=== PATIENT | male | born 1965 | race Caucasian/White ===

== ENCOUNTER → 2019-10-23 17:08 | Outpatient (CLI) | payer OTHER, SELFPAY ==
--- NOTE | ~2019-10-23 | XR_ITS ---
EXAMINATION: XR knee LT 3V DATE: 10/23/2019 17:23 INDICATION: Anterior and lateral left knee pain TECHNIQUE: Anteroposterior, 2 oblique and crosstable lateral views of the left knee were obtained COMPARISON: None. FINDINGS: Alignment is normal. No fracture. Joint spaces appear normal however evaluation for joint space narr owing is limited on nonweightbearing imaging. No joint effusion/layering lipohemarthrosis. Small enth esophytes along the anterior patella and distal quadriceps tendon. Soft tissues are unremarkable. IMPRESSION: 1. No left knee joint effusion or acute osseous abnormality. Reviewed, dictated and finalized at location A. TION ELECTRONICS TECHNICIAN
== END ==
PROVIDERS: PCP Family Medicine; Visit Provider Family Medicine
DX: G89.29 Other chronic pain (principal); M25.562 Pain in left knee
CPT/HCPCS: 73562

== ENCOUNTER → 2021-03-15 00:34 | Outpatient (CLI) | payer OTHER, SELFPAY ==
[2021-03-15 21:52] LABS: SARS-CoV-2 RNA PCR Negative
== END ==
PROVIDERS: PCP Family Medicine; Visit Provider Internal Medicine Critical Care Medicine
DX: R68.89 Other general symptoms and signs (principal); Z20.822 Contact with and (suspected) exposure to COVID-19
CPT/HCPCS: C9803; U0003; U0005

== ENCOUNTER 2021-03-18 16:00 | Outpatient (CLI) | payer OTHER, SELFPAY ==
--- NOTE | 2021-04-05 10:04 | WPDSLEEPSTUD ---
Sleep Study Date of Study: 03/18/21 Ordering Provider: Armando Zaragoza MD Interpreting Physician: Tory Sheriff MD Sleep Study Type: CPAP Titration Height: 1.85 m Weight: 120.202 kg Body Mass Index: 34.9 Neck Circumference (inches): 19.5 Garner: 9 Reason for Sleep Study obstructive sleep apnea on CPAP, needs a retitration * 01/08/2013- CPAP titration - Optimal pressure 8 cm body mass index 33.2. * 09/18/2012 - Basic sleep study showing obstructive sleep apnea; this was at an outside facility Sleep History Andrés ricardo is a 55-year-old male who has obstructive sleep apnea and is currently is CPAP. He does not feel rested when he wakes the morning. He does not awaken from sleep feeling short of breath. He occasionally awakens at night with heartburn, belching or coughing. He rarely snores. He does not snore loudly enough that others complain about it. He occasionally has trouble sleeping the cold. He rarely wakes up gasping for breath at night. He rarely has breathing problems at night observed by others. He occasionally sweats excessively at night. He rarely notices his heart pounding or beating irregularly night. He occasionally falls asleep during the day. He does not fall asleep involuntarily and he does not fall asleep while driving. He rarely has loss of muscle tone with strong emotion. He occasionally has daytime difficulties due to excessive sleepiness. He does not feel paralyzed on waking or falling asleep. He does not have vivid dreamlike scenes upon awakening or falling asleep. He does not feel afraid to go to sleep. He rarely has nightmares. He rarely remembers his dreams. He occasionally has racing thoughts. He occasionally feels sad or depressed. He occasionally has anxiety. He occasionally has muscular tension. He rarely notices parts of his body jerking. He does not kick at night. He occasionally has crawling and aching feelings in his legs. He occasionally has leg pain during the night. He does not have morning jaw pain. He rarely grinds his teeth during sleep. He occasionally has bothered by pain during the day. He occasionally has awakened by pain at night. He frequently wakes up feeling stiff in the morning with sore achy muscles and pain in the neck and spine. He has fatigue and occasionally depression. Normal bedtime 10:00 p.m. falling asleep quickly waking sometimes not at all but sometimes once at night for short amount of time to use the bathroom. He then repositioned and goes back to sleep. On the weekends he may stay awake as late as 10:30 or 11:00 p.m. He takes naps in the afternoon or evening. Sometimes he feels refreshed after a short nap of 10 or 15 minutes. He is usually drowsy in the morning for 3 hours or longer. He feels better in the afternoon compared other times of day Habits: Never smoked tobacco. Caffeine 4 beverages a day. Alcohol is used socially, infrequently. Recreational: marijuana. [facility] Past Medical History Medical History Abdominal pain Acute bronchitis Acute non-recurrent maxillary sinusitis Anxiety BMI 36.0-36.9,adult Chronic anxiety Chronic depression Chronic pain of left knee Depression Encounter for prostate cancer screening Encounter for wellness examination in adult Essential (primary) hypertension Fatigue Folliculitis Ganglion cyst Hypersomnia with sleep apnea Hypertension Hypothyroidism, unspecified Lateral epicondylitis of left elbow Mixed hyperlipidemia LUISITO on CPAP Polyp of colon Thyroid disorder Family History Family History Other Depression Social History Social History Smoking status: Never smoker Alcohol intake: current Substance use: current Substance use type: marijuana Medications Home Medications Medication Instructions Recorded Confirme
[2021-04-05 10:30] VITALS: BMI 34.9
== END 2021-03-19 07:16 | disposition home or self-care (01) ==
LOC: ANHCSM 03-22 10:11
PROVIDERS: PCP Family Medicine; Visit Provider Family Medicine
DX: G47.33 Obstructive sleep apnea (adult) (pediatric) (principal); G25.81 Restless legs syndrome
CPT/HCPCS: 95811

== ENCOUNTER → 2021-08-03 16:15 | Outpatient (CLI) | payer OTHER, SELFPAY ==
--- NOTE | ~2021-08-03 | XR_ITS ---
XR lumbar spine min 4V 08/03/2021 16:28 Indication: Low back pain Procedure: 5 views lumbar spine Comparison: 06/25/2013 Findings: There is mild disc narrowing at all lumbar levels. There is mild lower lumbar facet hypertr ophy. No fracture, subluxation or dislocation. No evidence for spondylolisthesis. Sacral foramen are symmetric. Impression: 1: Progression of mild lumbar spondylosis. Reviewed, dictated and finalized at location A. Impression: 1: Progression of mild lumbar spondylosis.
== END ==
PROVIDERS: PCP Family Medicine; Visit Provider Family Medicine
DX: M54.40 Lumbago with sciatica, unspecified side (principal); M47.896 Other spondylosis, lumbar region
CPT/HCPCS: 72110

== ENCOUNTER 2021-09-06 12:01 | Outpatient (CLI) | payer OTHER, SELFPAY ==
[2021-09-06 12:27] LABS: Basophils Absolute Auto 0.1 K/mm3 (0.0-0.1); Basophils Percent Auto 0.6 % (0.2-1.2); Eosinophils Absolute Auto 0.2 K/mm3 (0-0.3); Eosinophils Percent Auto 1.7 % (0-4.4); Hemoglobin 15.7 g/dL (14.0-18.0); Immature Granulocyte Absolute 0.03 K/mm3 (0.00-0.031); Immature Granulocyte Percent A 0.2 % (0-0.5); Lymphocytes Absolute Auto 3.91 K/mm3 (0.9-3.2); Lymphocytes Percent Auto 31.7 % (18.3-44.2); Mean Corpuscular HGB Conc 34.9 g/dl (32-36); Mean Corpuscular Hemoglobin 29.9 pg (26-34); Mean Corpuscular Volume 85.7 fl (80-100); Mean Platelet Volume 9.6 fl (7.4-10.4); Monocytes Percent Auto 8.4 % (2.6-8.5); Neutrophils Absolute Auto 7.1 K/mm3 (1.3-6.7); Neutrophils Percent Auto 57.4 % (45.5-73.1); Platelet Count Result 250 k/mm3 (150-375); Red Blood Count 5.25 M/mm3 (4.6-6.20); Red Cell Distribution Width 12.2 % (11.5-14.5); White Blood Count 12.3 K/mm3 (4.5-10.0)
[2021-09-06 12:42] LABS: Alanine Aminotransferase 32 U/L (4-50); Albumin Level 4.8 g/dL (3.5-5.1); Alkaline Phosphatase 62 U/L (38-126); Anion Gap 10 mmol/L (8-16); Aspartate Amino Transferase 31 U/L (17-59); Bilirubin,Total 0.9 mg/dL (0.2-1.3); Blood Urea Nitrogen 20 mg/dL (9-20); Calcium 9.7 mg/dL (8.4-10.2); Carbon Dioxide 29 mmol/L (22-30); Chloride 99 mmol/L (98-107); Cholesterol 193 mg/dL (0-200); Estimated Glomerular Filt Rate 52; Glucose 93 mg/dL (65-110); HDL Direct 44 mg/dL; Sodium 138 mmol/L (137-145); Triglycerides 228 mg/dL (<150)
--- NOTE | 2021-09-06 12:45 | ECG_ITS ---
Measurements Intervals [place] Rate: 50 P: 59 AK: 192 QRS: 44 QRSD: 112 T: 31 QT: 460 QTc: 423 Interpretive Statements SINUS BRADYCARDIA INTRAVENTRICULAR CONDUCTION DELAY DELAYED PRECORDIAL R/S TRANSITION BASELINE ARTIFACT- II, III, AVF BORDERLINE ECG Electronically Signed On 09-06-2021 13:26:20 BLOW MOLD OPERATOR by Naseem Boyd D.O.
[2021-09-06 12:53] LABS: LDL Cholesterol Direct 93 mg/dL
[2021-09-06 12:56] LABS: Free T4 Free Thyroxine 1.11 ng/mL (0.78-2.19)
== END 2021-09-06 12:02 | disposition home or self-care (01) ==
PROVIDERS: PCP Family Medicine; Visit Provider Nurse Practitioner Family
DX: E03.9 Hypothyroidism, unspecified (principal); E78.2 Mixed hyperlipidemia; I10 Essential (primary) hypertension
CPT/HCPCS: 36415; 80053; 80061; 84439; 84443; 85025; 93005

== ENCOUNTER 2021-09-07 13:40 | Observation (INO) | payer OTHER, SELFPAY ==
[2021-09-07] VITALS (20 sets, daily range): BP systolic 142–186; BP diastolic 88–117; PULSE 49–61; RESP 15–24; TEMP 36.4; O2SAT 96–100
--- NOTE | ~2021-09-07 | XR_ITS ---
EXAMINATION: XR chest 2V DATE: 09/07/2021 14:35 INDICATION: Left-sided chest pain. Hypertension. TECHNIQUE: PA and lateral views of the chest were obtained. COMPARISON: None FINDINGS: Minimal streaky atelectasis at the base of the lingula. A couple small calcified nodules at the left lower lung zone consistent with old granulomatous disease. No other airspace opacities, pulmonary chela ma, pleural effusion or pneumothorax. The cardiomediastinal silhouette is normal. Mild thoracic spond ylosis. IMPRESSION: 1. Minimal lingular atelectasis/scarring. No other acute cardiopulmonary disease. Reviewed, dictated and finalized at location A. N INSTALLER IMPRESSION: 1. Minimal lingular atelectasis/scarring. No other acute cardiopulmonary diseas e.
--- NOTE | 2021-09-07 13:44 | ECG_ITS ---
Measurements Intervals [place] Rate: 50 P: 40 LA: 198 QRS: 14 QRSD: 108 T: 57 QT: 431 QTc: 396 Interpretive Statements SINUS BRADYCARDIA INCOMPLETE RIGHT BUNDLE BRANCH BLOCK BORDERLINE R WAVE PROGRESSION, ANTERIOR LEADS BASELINE ARTIFACT- I, II, III, AVR, AVL, AVF BORDERLINE ECG Electronically Signed On 09-07-2021 17:53:16 ROD BENDING MACHINE OPERATOR by Naseem Boyd D.O.
[2021-09-07 14:49] LABS: Basophils Absolute Auto 0.1 K/mm3 (0.0-0.1); Basophils Percent Auto 0.6 % (0.2-1.2); Eosinophils Absolute Auto 0.2 K/mm3 (0-0.3); Eosinophils Percent Auto 1.8 % (0-4.4); Hematocrit 43.8 % (42.0-52.0); Immature Granulocyte Absolute 0.02 K/mm3 (0.00-0.031); Immature Granulocyte Percent A 0.2 % (0-0.5); Lymphocytes Absolute Auto 2.93 K/mm3 (0.9-3.2); Lymphocytes Percent Auto 26.6 % (18.3-44.2); Mean Corpuscular HGB Conc 34.2 g/dl (32-36); Mean Corpuscular Volume 87.6 fl (80-100); Mean Platelet Volume 9.4 fl (7.4-10.4); Monocytes Absolute Auto 0.7 K/mm3 (0.1-0.6); Monocytes Percent Auto 6.5 % (2.6-8.5); Neutrophils Absolute Auto 7.1 K/mm3 (1.3-6.7); Neutrophils Percent Auto 64.3 % (45.5-73.1); Platelet Count Result 213 k/mm3 (150-375); Red Cell Distribution Width 12.6 % (11.5-14.5)
[2021-09-07 15:00] LABS: Alanine Aminotransferase 31 U/L (4-50); Albumin Level 4.7 g/dL (3.5-5.1); Alkaline Phosphatase 59 U/L (38-126); Anion Gap 8 mmol/L (8-16); Aspartate Amino Transferase 31 U/L (17-59); Bilirubin,Total 0.7 mg/dL (0.2-1.3); Blood Urea Nitrogen 20 mg/dL (9-20); Calcium 9.5 mg/dL (8.4-10.2); Carbon Dioxide 29 mmol/L (22-30); Chloride 101 mmol/L (98-107); Estimated CRCL calculation 68 ml/min; Estimated Glomerular Filt Rate 48; Glucose 121 mg/dL (65-110); Lipase 97 U/L (23-300); Potassium 4.2 mmol/L (3.4-5.0); Sodium 138 mmol/L (137-145)
[2021-09-07 15:02] LABS: INR 0.9; Prothrombin Time 12.1 Seconds (11.1-14.7)
[2021-09-07 15:03] LABS: Partial Thromboplastin Time 26.4 SECONDS (22.3-36.8)
[2021-09-07 15:11] LABS: Troponin I < 0.012 ng/mL (0.000-0.034)
[2021-09-07 17:44] LABS: Troponin I < 0.012 ng/mL (0.000-0.034)
--- NOTE | 2021-09-07 20:10 | ED.CHESTPAIN ---
HPI - Chest Pain General Chief Complaint: Chest Pain Stated Complaint: ELEVATED BP,CHEST TIGHT FLUSHED Time Seen by Provider: 09/07/21 20:12 Source: patient Mode of arrival: ambulatory Limitations: no limitations History of Present Illness HPI narrative: Patient is a 56-year-old male complaining of chest pain, midsternal, tightness, 7 out of 10, nonradiating accompanied by elevated blood pressure started today. Patient denies any shortness of breath, abdominal pain, nausea, vomiting, diaphoresis, fever or chills. Related Data Allergies Allergy/AdvReac Type Severity Reaction Status Date / Time Mushroom Allergy Severe HIVES Uncoded 07/18/19 14:49 Review of Systems Review of Systems: All systems reviewed & are unremarkable except as noted in HPI and below Constitutional: Constitutional: Denies body ache(s), Denies chills, Denies excessive sweating, Denies fatigue, Denies fever(s), Denies headache(s), Denies lethargy, Denies malaise, Denies weakness and Denies weight loss Eyes: Eyes: Denies blurry vision, Denies change in vision and Denies loss of vision ENT: Denies dizziness, Denies ear discharge, Denies headache(s), Denies lip swelling, Denies epistaxis, Denies nasal congestion, Denies neck pain, Denies throat swelling and Denies tongue swelling Cardiovascular: Cardiovascular: Reports chest pain, Reports chest pain at rest, Reports chest pain with activity, Denies diaphoresis, Denies rapid heart rate, Denies edema, Denies irregular heart rhythm, Denies lightheadedness, Denies palpitations, Denies dyspnea and Denies dyspnea on exertion Respiratory: Respiratory: Denies chest congestion, Denies cough, Denies hemoptysis, Denies dyspnea and Denies dyspnea on exertion Gastrointestinal: Gastrointestinal: Denies abdominal pain, Denies melena, Denies hematochezia, Denies diarrhea, Denies nausea, Denies vomiting and Denies hematemesis Musculoskeletal: Musculoskeletal: Denies abnormal gait, Denies deformity, Denies joint swelling, Denies limited range of motion, Denies neck pain and Denies numbness Neurologic: Denies Abnormal speech present, Denies abnormal gait, Denies confusion, Denies dizziness, Denies headache(s), Denies focal weakness, Denies loss of vision, Denies numbness, Denies Other visual disturbances, Denies Sensory deficit (Neuro) and Denies weakness Psychiatric: Psychiatric: Denies confusion, Denies depression, Denies auditory hallucinations, Denies homicidal ideation and Denies suicidal ideation Endocrine: Endocrine: Denies cold intolerance, Denies excessive sweating, Denies fatigue, Denies heat intolerance and Denies palpitations Hematologic/Lymphatic: Hematologic/Lymphatic: Denies easy bleeding and Denies easy bruising Allergic/Immunologic: Allergic/Immunologic: Denies lip swelling, Denies throat swelling and Denies tongue swelling PMFSH Past Medical History Medical History Abdominal pain Acute bronchitis Acute non-recurrent maxillary sinusitis Anxiety BMI 35.0-35.9,adult BMI 36.0-36.9,adult Chronic anxiety Chronic depression Chronic left-sided low back pain with sciatica 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 previous CPAP titration on 01/09/2013 with 8 cm water pressure with large nasal mask. Plantar wart of left foot (~08/03/21) Polyp of colon Seasonal allergic rhinitis Thyroid disorder Family Hi
[2021-09-07] MEDS: ASPIRIN 81 MG CHEWABLE TABLET 324 MG PO (20:34)
[2021-09-07 21:11] LABS: Troponin I < 0.012 ng/mL (0.000-0.034)
[2021-09-07] MEDS: NITROGLYCERIN OINTMENT 1 INCH DOSE TRANSDERM (22:07)
--- NOTE | 2021-09-07 22:09 | PC.NURSE ---
dr oneill informed of current bp 156/91 request to hold hydralazine and give ntg paste 1 inch
[2021-09-08 03:25] VITALS: BP 124/79; PULSE 64; RESP 18; O2SAT 95
--- NOTE | 2021-09-08 04:43 | PM.IMHP ---
H&P: HPI History of Present Illness Date/Time: 09/08/21 04:43 Chief Complaint: High blood pressure chest pain Narrative: this is a 56-year-old male who presents to the ED with elevated blood pressure readings. He states he has been having issues blood pressure recently and has been recently started on metoprolol by his primary care physician. His recent lab work also noted elevated TSH for which his doses of levothyroxine was adjusted. He states that he was feeling flushed and was noted to have elevated blood pressure and hence he called his primary care physician. Who advised him to go to the ER for evaluation. Patient reports that she he was having some chest discomfort in his left upper part of the chest which he has not noticed in the past. Denies any diaphoresis fever chills nausea vomiting abdominal pain or shortness of breath. In the ED was evaluated with EKG which shows sinus bradycardia without any acute ST-T changes. Troponin was negative . He is admitted for further evaluation and management Review of Systems Review of Systems: - CONSTITUTIONAL: Denies weight loss, fever and chills. - HEENT: Denies changes in vision and hearing - RESPIRATORY: Denies SOB and cough. - CV: Denies palpitations and reports CP. - GI: Denies abdominal pain, nausea, vomiting and diarrhea. - : Denies dysuria and urinary frequency. - MSK: Denies myalgia and joint pain. - SKIN: Denies rash and pruritus. - NEUROLOGICAL: Denies headache and syncope. - PSYCHIATRIC: Denies recent changes in mood. Denies anxiety and depression. All systems reviewed & are unremarkable except as noted in HPI and below PMFSH Past Medical History Medical History Abdominal pain Acute bronchitis Acute non-recurrent maxillary sinusitis Anxiety BMI 35.0-35.9,adult BMI 36.0-36.9,adult Chronic anxiety Chronic depression Chronic left-sided low back pain with sciatica 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 previous CPAP titration on 01/09/2013 with 8 cm water pressure with large nasal mask. Plantar wart of left foot (~08/03/21) Polyp of colon Seasonal allergic rhinitis Thyroid disorder Family History Family History Other Depression Social History Social History Smoking status: Never smoker Alcohol intake: current Substance use: current Substance use type: marijuana Meds Home Medications and Allergies Home Medications Medication Instructions Recorded Confirmed Type irbesartan 300 1 tablet PO DAILY #90 tablet 11/02/20 09/07/21 Rx mg-hydrochlorothiazide 12.5 mg tablet buspirone 10 mg tablet 5 mg PO DAILY #45 tablet 08/03/21 09/07/21 Rx levothyroxine 175 mcg tablet 175 mcg PO DAILY #90 tablet 08/24/21 09/07/21 Rx simvastatin 80 mg tablet 80 mg PO DAILY #90 tablet 08/24/21 09/07/21 Rx metoprolol succinate 100 mg 100 mg PO DAILY #90 tablet 08/30/21 09/07/21 Rx tablet,extended release 24 hr Allergies Allergy/AdvReac Type Severity Reaction Status Date / Time Mushroom Allergy Severe HIVES Uncoded 09/07/21 23:21 Vital Signs Vital Signs - 24 hr 09/07/21 14:10 09/07/21 17:07 09/07/21 20:06 Temperature 97.5 F L Pulse Rate 57 L 50 L 54 L Respiratory Rate 16 15 Blood Pressure 175/9
[2021-09-08 06:17] VITALS: BP 128/71; PULSE 52; RESP 16; O2SAT 100
[2021-09-08 07:27] VITALS: BP 143/75; PULSE 60; RESP 16; O2SAT 100
--- NOTE | 2021-09-08 08:55 | ADMGEN ---
This patient, Andrés Newman, was admitted to [facility]. Patient/family oriented to hospital policies and general routines including ID bracelet, bed and alarms, visiting hours, pain management, procedures, bathroom and other care routines, personal items, smoking policy, room service/diet, and visiting hours. Information on how to activate the Rapid Response Team has been discussed. Patient/Family are encouraged to report perceived risks to care and to ask questions if they do not understand what they are told or what they should do. PT ARRIVED TO ROOM, PAINFREE. ADMISSION PROCESS DONE WITH PT. DR PATIÑO HERE VISITING PT.
[2021-09-08 09:07] VITALS: BP 139/82; PULSE 53; RESP 16; TEMP 36.4; O2SAT 98
--- NOTE | 2021-09-08 09:28 | PM.CNCAR ---
Assessment and Plan Additional Plan 56-year-old man with longstanding hypertension having episodes recently where his blood pressure is quite high and at that time he has symptoms of flushing and some generalized weakness. There are no exertional symptoms that are suggestive of or a typical of myocardial ischemia. Despite the symptoms that he reported to the hospital with his electrocardiograms are normal and his troponin levels are negative x3 sets. This point I do not believe he needs an evaluation for coronary artery disease. I would recommend that his primary care physician consider workup for renal artery stenosis and possibly for pheochromocytoma as well. He does not have to remain in the hospital obviously for these exams. At this point I do not have any specific cardiac recommendations and he can be discharged from my perspective Jose Angel Tucker MD [facility] History of Present Illness History of Present Illness Consult date/time: 09/08/21 09:28 Consult reason: chest pain Reason For Visit: Chest pain Narrative: This is a 56-year-old man that I am seeing this morning at the request of the hospitalist because of chest pain. The patient is not known to have any cardiac problems prior to this and has been primarily concerned recently about hypertension. He has chronic longstanding essential hypertension and states that recently he has been feeling poorly at times with the sense of being flushed and general weakness would come over him in waves. When he would check his blood pressure at this time it would be considerably elevated at times he was getting blood pressure readings in excess of 200 mmHg. He went to see his primary care physician who added metoprolol to his previous regimen of your breasts are 10/hydrochlorothiazide. He called them again yesterday because he was having waves of hypertension and he states that when he was concerned about this he noticed a mild full sensation on the left side of his chest. He does not really describe this as a pain or a tightness. In his usual state of health this is a gentleman who does not exercise in any structured weight but he does lead an active lifestyle and has not noticed that physical activity such as sustained walking or going on hikes on a vacation will trigger any symptoms of chest pain pressure or heaviness. He denies any sense of shortness of breath orthopnea PND edema palpitations or syncope. In the emergency room his electrocardiogram was done twice and they are normal. He had a series of troponin levels done and they are normal. He is resting in the chest pain center and appears to be quite comfortable his current blood pressure is much better. In this setting I been asked to see him in consultation. Review of Systems Constitutional: Constitutional: Reports no additional constitutional complaints Eyes: Eyes: Reports no additional eye complaints ENT: Reports system reviewed and no additional complaints, except as documented Cardiovascular: Cardiovascular: Reports as per HPI Respiratory: Respiratory: Reports no additional respiratory complaints Gastrointestinal: Gastrointestinal: Reports no additional gastrointestinal complaints Musculoskeletal: Musculoskeletal: Reports no additional musculoskeletal complaints Integumentary/Breasts: Skin/Breast: Reports system reviewed and no additional complaints, except as docu Neurologic: Reports system reviewed and no additional complaints, except as documented Endocrine: Endocrine: Reports no additional endocrine complaints Hematologic/Lymphatic: Hematologic/Lymphatic: Reports no additional hematologic/lymphatic complaints Allergic/Immunologic: Allergic/Immunologic: Reports no additional allergic/immunologic complaints PMFSH Past Medical History Medical History Abdominal pain Acute bronchitis Acute non-recurrent maxillary sinusitis Anxiety BMI 35.0-35.9,adult BMI 36.0-36.9
[2021-09-08 10:32] VITALS: BMI 34.5
[2021-09-08 10:33] VITALS: PULSE 44
--- NOTE | 2021-09-08 10:51 | PM.DS ---
DS: Admitting Diagnosis Discharge Date 09/08/2021 Admitting Diagnosis #Uncontrolled hypertension # chest pain EKG with no acute changes. # LUISITO on CPAP # hypertension resume home medication # hyperlipidemia home medication # chronic anxiety and depression # hypothyroidism # full code status DS: Discharge Diagnosis Discharge Diagnosis (1) Hypertensive urgency: Code(s): I16.0 - Hypertensive urgency Status: Acute (2) Chest pain at rest: Code(s): R07.9 - Chest pain, unspecified Status: Acute (3) Chronic depression: Code(s): F32.9 - Major depressive disorder, single episode, unspecified Status: Acute (4) LUISITO on CPAP: Code(s): G47.33 - Obstructive sleep apnea (adult) (pediatric); Z99.89 - Dependence on other enabling machines and devices Status: Acute (5) Hypothyroidism, unspecified: Qualifiers: Hypothyroidism type: unspecified Qualified Code(s): E03.9 - Hypothyroidism, unspecified Code(s): E03.9 - Hypothyroidism, unspecified Status: Acute (6) Chronic anxiety: Code(s): F41.9 - Anxiety disorder, unspecified Status: Acute (7) Essential (primary) hypertension: Code(s): I10 - Essential (primary) hypertension Status: Acute DS: Summary Hospital Course Reason for hospitalization: Chest pain. Hospital Course: Please refer to admission H&P. Briefly, this is a 56-year-old male who presents to the ED with elevated blood pressure readings. He states he has been having issues blood pressure recently and has been recently started on metoprolol by his primary care physician. His recent lab work also noted elevated TSH for which his doses of levothyroxine was adjusted. He states that he was feeling flushed and was noted to have elevated blood pressure and hence he called his primary care physician. Who advised him to go to the ER for evaluation. Patient reports that she he was having some chest discomfort in his left upper part of the chest which he has not noticed in the past. Denies any diaphoresis fever chills nausea vomiting abdominal pain or shortness of breath. In the ED was evaluated with EKG which shows sinus bradycardia without any acute ST-T changes. Troponin was negative . patient does not have any prior cardiac history. He carries a diagnosis of chronic longstanding hypertension. Most recently the patient has been feeling poorly with the sensation of flushing, generalized weakness. During does episode his blood pressure would be elevated in the 200 mm of Hg range. Patient was seen by his primary care physician who appropriately added metoprolol to his previous regimen of ill base are 10 10 and hydrochlorothiazide. This by this intervention, the patient continues to notice a sensation of fullness of his LEs chest. At baseline the patient leads a pretty active lifestyle. ; he does not exercise but he is physically active; his physical activity does not trigger any chest pain or chest heaviness. Is electrocardiogram was twice benign. Eight 3 set of troponin were within normal range. Patient is stable hemodynamically and quite comfortable. He will be discharged with follow-up for additional outpatient workup for renal artery stenosis and pheochromocytoma, per Cardiology recommendation. Status at Discharge Functional status at discharge: independent ambulation Overall status at discharge: patient is back to baseline Time Spent with Patient Time attestation: Total time spent providing and/or coordinating discharge services: Time spent: Greater than 30 minutes Exam Narrative: GENERAL: The patient is well developed, not in acute distress HEENT: Nonicteric sclerae, PERRLA, EOMI. Oropharynx clear. Moist mucous membranes. Conjunctivae appear well perfused. CHEST: Chest wall is nontender. HEART: Regular rate and rhythm without murmur, rubs, or gallops LUNGS: Clear to auscultation bilaterally. no respiratory distress ABDOMEN: Soft,
--- NOTE | 2021-09-08 12:13 | PC.NURSE ---
DR BENZ HERE SEEING PT. REPORTS THAT SHE WILL DISCHARGE PT WITH OUT PATIENT FOLLOW UP.
--- NOTE | 2021-09-08 13:23 | PC.NURSE ---
DISCHARGE INSTRUCTION REVIEWED WITH PT. VERBALIZED UNDERSTANDING. PT ESCORTED OFF FLOOR.
== END 2021-09-08 13:27 | disposition home or self-care (01) ==
LOC: ANHED 20:44 → ANH2MED 23:32 → ANHCPC 09-08 10:51 → ANH2MED 09-09 11:55 → ANHCPC 09-09 11:55
PROVIDERS: Emergency Medicine; Admitting Provider Internal Medicine; Emergency Provider Emergency Medicine; PCP Family Medicine; Visit Provider Internal Medicine
DX: I16.0 Hypertensive urgency (principal); R07.9 Chest pain, unspecified; G47.33 Obstructive sleep apnea (adult) (pediatric); F32.9 Major depressive disorder, single episode, unspecified; E03.9 Hypothyroidism, unspecified; F41.8 Other specified anxiety disorders; I10 Essential (primary) hypertension; E78.5 Hyperlipidemia, unspecified
CPT/HCPCS: 36415; 71046; 80053; 83690; 84484; 85025; 85610; 85730; 93005; 99285; A9270; G0378

== ENCOUNTER 2021-09-20 15:50 | Outpatient (CLI) | payer OTHER, SELFPAY ==
[2021-09-24 10:33] LABS: Metanephrine, Free <25 pg/mL (<=57); Normetanephrine, Free 73 pg/mL (<=148); Total, Free (MN + NMN) 73 pg/mL (<=205)
== END 2021-09-20 15:51 | disposition home or self-care (01) ==
LOC: ANHLAB 15:52
PROVIDERS: PCP Family Medicine; Visit Provider Internal Medicine
DX: I16.0 Hypertensive urgency (principal)
CPT/HCPCS: 36415; 83835

== ENCOUNTER 2021-09-22 15:32 | Outpatient (CLI) | payer OTHER, SELFPAY ==
--- NOTE | ~2021-09-22 | US_ITS ---
EXAMINATION: US retroperitoneal duplex ltd DATE: 09/22/2021 16:15 COMMODITY DIRECTOR INDICATION: Hypertensive urgency TECHNIQUE: Sonographic imaging of the kidneys was performed with a 3.5 MHz transducer. Retroperitone al duplex sonogram of the renal arteries also obtained. FINDINGS: No focal flow abnormalities are seen in the renal arteries on color Doppler. The peak syst olic velocity ranges of the right and left renal arteries and aorta are 74 cm per second, 87 cm per s econd, and 97 cm per second, respectively. The velocities and renal to aortic ratios are within yunier l limits. IMPRESSION: 1. No Doppler evidence of renal artery stenosis. Reviewed, dictated and finalized at location A. ODITY DIRECTOR
== END 2021-09-22 15:33 | disposition home or self-care (01) ==
LOC: ANHIMG 15:37
PROVIDERS: PCP Family Medicine; Visit Provider Internal Medicine
DX: I16.0 Hypertensive urgency (principal); I70.1 Atherosclerosis of renal artery
CPT/HCPCS: 83835; 93976

== ENCOUNTER 2021-11-06 07:55 | Outpatient (CLI) | payer OTHER, SELFPAY ==
[2021-11-06 08:32] LABS: Add Urine Microscopic? YES; Appearance Urine Clear (Clear); Bilirubin Urine Negative (Negative); Blood Urine Negative (Negative); Color Urine Yellow (Yellow); Glucose Urine UA Negative (Negative); Ketones Urine Negative (Negative); Leukocyte Esterase Ur Negative LEU/UL (NEGATIVE); Mucus Urine Rare /lpf; Nitrate Urine Negative (Negative); Protein Urine Negative (Negative); RBC Urine 0-2 /hpf (0-2); Specific Grav Ur 1.024 (1.001-1.035); Urobilinogen Urine Negative mg/dL (<2.0); WBC Urine 0-3 /hpf (0-3)
[2021-11-06 08:37] LABS: Creatinine Urine 263.1 mg/dL
[2021-11-06 08:43] LABS: Sodium Urine Random 62 meq/L
[2021-11-06 08:43] LABS: Basophils Absolute Auto 0.1 K/mm3 (0.0-0.1); Basophils Percent Auto 0.8 % (0.2-1.2); Eosinophils Absolute Auto 0.2 K/mm3 (0-0.3); Eosinophils Percent Auto 2.8 % (0-4.4); Hematocrit 41.8 % (42.0-52.0); Hemoglobin 14.3 g/dL (14.0-18.0); Immature Granulocyte Absolute 0.02 K/mm3 (0.00-0.031); Immature Granulocyte Percent A 0.3 % (0-0.5); Lymphocytes Absolute Auto 2.42 K/mm3 (0.9-3.2); Lymphocytes Percent Auto 31.9 % (18.3-44.2); Mean Corpuscular HGB Conc 34.2 g/dl (32-36); Mean Corpuscular Hemoglobin 29.4 pg (26-34); Mean Platelet Volume 9.7 fl (7.4-10.4); Monocytes Absolute Auto 0.6 K/mm3 (0.1-0.6); Neutrophils Absolute Auto 4.3 K/mm3 (1.3-6.7); Neutrophils Percent Auto 56.2 % (45.5-73.1); Platelet Count Result 224 k/mm3 (150-375); Red Blood Count 4.86 M/mm3 (4.6-6.20); Red Cell Distribution Width 12.5 % (11.5-14.5); White Blood Count 7.6 K/mm3 (4.5-10.0)
[2021-11-06 08:50] LABS: Eosinophil Urine NONE SEEN % (None Seen)
[2021-11-06 08:59] LABS: Total Protein Urine Random < 5 mg/dL
[2021-11-06 09:00] LABS: Ur Ttl Prot Creatinine Ratio < 0.02 mg/mg (0-0.20)
[2021-11-06 09:25] LABS: Erythrocyte Sedimentation Rate 11 mm/hr (0-20)
[2021-11-06 09:34] LABS: Alanine Aminotransferase 27 U/L (4-50); Albumin Level 4.3 g/dL (3.5-5.1); Alkaline Phosphatase 53 U/L (38-126); Anion Gap 3 mmol/L (8-16); Aspartate Amino Transferase 29 U/L (17-59); Blood Urea Nitrogen 18 mg/dL (9-20); Calcium 9.1 mg/dL (8.4-10.2); Carbon Dioxide 31 mmol/L (22-30); Chloride 106 mmol/L (98-107); Cholesterol 152 mg/dL (0-200); Estimated Glomerular Filt Rate > 60; Glucose 104 mg/dL (65-110); HDL Direct 34 mg/dL; Phosphorus 3.7 mg/dL (2.5-4.5); Potassium 3.8 mmol/L (3.4-5.0); Sodium 140 mmol/L (137-145); Triglycerides 131 mg/dL (<150)
[2021-11-06 09:38] LABS: Iron 107 ug/dL (49-181)
[2021-11-06 09:45] LABS: LDL Cholesterol Direct 77 mg/dL
[2021-11-06 09:49] LABS: Complement C3 111 mg/dL (88-165)
[2021-11-06 10:04] LABS: Free T4 Free Thyroxine 0.98 ng/mL (0.78-2.19); Prostate Specific Antigen 0.7 ng/mL (< OR = 4.0)
[2021-11-06 11:27] LABS: Folic Acid > 20.0 ng/mL (2.76->20)
[2021-11-10 18:29] LABS: Albumin 3.9 g/dL (3.8-4.8); Alpha 1 Globulin 0.3 g/dL (0.2-0.3); Alpha 2 Globulin 0.6 g/dL (0.5-0.9); Beta 1 Globulin 0.5 g/dL (0.4-0.6); Gamma Globulin 1.3 g/dL (0.8-1.7)
[2021-11-10 20:44] LABS: Creatinine, Random Urine 239 mg/dL (20-320); Total Protein/Creatinine Ratio 42 mg/g creat (22-128)
[2021-11-11 10:36] LABS: Anti Glomerular Basement Memb <1.0 AI (<1.0)
[2021-11-11 22:35] LABS: ANCA Screen Negative (Negative)
== END 2021-11-06 07:56 | disposition home or self-care (01) ==
PROVIDERS: PCP Family Medicine; Visit Provider Internal Medicine Nephrology
DX: E03.9 Hypothyroidism, unspecified (principal); E78.2 Mixed hyperlipidemia; G47.33 Obstructive sleep apnea (adult) (pediatric); R53.83 Other fatigue; Z12.5 Encounter for screening for malignant neoplasm of prostate; Z99.89 Dependence on other enabling machines and devices; I12.9 Hypertensive chronic kidney disease with stage 1 through stage 4 chronic kidney disease, or unspecified chronic kidney disease; N18.32 Chronic kidney disease, stage 3b
CPT/HCPCS: 36415; 80053; 80061; 80069; 81001; 82570; 82607; 82728; 82746; 83520; 83540; 84153; 84155; 84156; 84165; 84166; 84300; 84439; 84443; 85025; 85652; 85999; 86036; 86038; 86160; 86225; G0103

== ENCOUNTER 2021-11-23 09:37 | Outpatient (CLI) | payer OTHER, SELFPAY ==
--- NOTE | 2021-11-23 | ECHO_ITS ---
Patient Info Name: Andrés Newman Age: 56 years : 1965 Gender: Male Ht: 73 in Wt: 250 lbs BSA: 2.45 m2 HR: 60 bpm BP: 163 / 100 mmHg Technical Quality: Good Exam Date: 11/23/2021 9:59 AM Exam Location: [facility] Patient Status: Outpatient Admit Date: 11/23/2021 Staff Ordering Physician: Ge Becker MD Sales Representative Jewelry: Ramona Mcgowan RDCS Attending Provider: Ge Becker MD Referring Physician: Eugenio JANE; Exam Type: CA echo doppler color flow Study Info Indications N18.3 - Chronic kidney disease, stage 3 (moderate) I12.9 - Hypertensive chronic kidney disease with stage 1 through stage 4 chronic kidney disease, or unspecified chronic kidney disease I10 - Essential (primary) hypertension Complete two-dimensional, color flow and Doppler transthoracic echocardiogram is performed. Summary 1. Complete two-dimensional, color flow and Doppler transthoracic echocardiogram is performed. 2. Left ventricular chamber dimension is normal. 3. Left ventricular systolic function is normal, estimated at 60-65%. 4. There is moderately increased left ventricular wall thickness. 5. The left ventricular diastolic function is abnormal. 6. E/e' 10 is mildly elevated. 7. Global longitudinal strain is mildly abnormal at -16.0%. 8. Left atrial chamber dimension is mildly enlarged. 9. No pulmonary hypertension, estimated pulmonary arterial systolic pressure is 21 mmHg. Left Ventricle E/e' 10 is mildly elevated. Global longitudinal strain is mildly abnormal at -16.0%. Left ventricular chamber dimension is normal. Left ventricular systolic function is normal, estimated at 60-65%. There is moderately increased left ventricular wall thickness. The left ventricular diastolic function is abnormal. Right Ventricle Right ventricular chamber dimension is normal. Right ventricular systolic function is normal. Left Atria Left atrial chamber dimension is mildly enlarged. Right Atria Right atrial chamber dimension is normal. Aortic Valve The aortic valve is trileaflet. There is no aortic valve stenosis. There is no aortic valve regurgitation. Pulmonic Valve There is no pulmonic regurgitation. Mitral Valve There is no mitral valve stenosis. There is no mitral valve regurgitation. Tricuspid Valve There is no tricuspid valve regurgitation. No pulmonary hypertension, estimated pulmonary arterial systolic pressure is 21 mmHg. Pericardium/Pleural There is no pericardial effusion. Inferior Vena Cava Normal inferior vena cava with >50% collapse upon inspiration consistent with normal right atrial pressure, 5 mmHg. Aorta The aortic root size at the sinus of Valsalva is normal. Left Ventricular Outflow Tract Name Value Normal LVOT 2D LVOT Diameter 2.3 cm LVOT Doppler LVOT Peak Gradient 4 mmHg LVOT Mean Gradient 2 mmHg LVOT VTI 21 cm LVOT VTI/AV VTI Ratio 0.9 LVOT Stroke Volume 90 ml LVOT CO 5.4
== END 2021-11-23 09:38 | disposition home or self-care (01) ==
LOC: ANHCARD 09:41
PROVIDERS: PCP Family Medicine; Visit Provider Internal Medicine Nephrology
DX: I12.9 Hypertensive chronic kidney disease with stage 1 through stage 4 chronic kidney disease, or unspecified chronic kidney disease (principal); N18.31 Chronic kidney disease, stage 3a
CPT/HCPCS: 93306

== ENCOUNTER 2022-04-01 10:03 | Outpatient (CLI) | payer OTHER, SELFPAY ==
[2022-04-01 11:27] LABS: Creatinine Urine 119.8 mg/dL
[2022-04-01 11:47] LABS: Total Protein Urine Random < 5 mg/dL; Ur Ttl Prot Creatinine Ratio < 0.04 mg/mg (0-0.20)
[2022-04-01 12:10] LABS: Albumin Level 4.1 g/dL (3.5-5.1); Anion Gap 7 mmol/L (8-16); Blood Urea Nitrogen 16 mg/dL (9-20); Calcium 8.3 mg/dL (8.4-10.2); Carbon Dioxide 27 mmol/L (22-30); Chloride 105 mmol/L (98-107); Estimated Glomerular Filt Rate 57; Glucose 118 mg/dL (65-110); Phosphorus 3.1 mg/dL (2.5-4.5); Potassium 3.4 mmol/L (3.4-5.0); Sodium 139 mmol/L (137-145)
== END 2022-04-01 10:04 | disposition home or self-care (01) ==
LOC: ANHLAB 10:06
PROVIDERS: PCP Family Medicine; Visit Provider Internal Medicine Nephrology
DX: I12.9 Hypertensive chronic kidney disease with stage 1 through stage 4 chronic kidney disease, or unspecified chronic kidney disease (principal); N18.2 Chronic kidney disease, stage 2 (mild)
CPT/HCPCS: 36415; 80069; 82570; 84156

== ENCOUNTER 2022-05-17 00:13 | Day surgery (SDC) | payer OTHER, SELFPAY ==
[2022-05-03 14:38] VITALS: BMI 36.3
[2022-05-17 08:44] VITALS: BP 134/78; PULSE 51; RESP 17; TEMP 36.6; O2SAT 99
[2022-05-17] MEDS: LACTATED RINGERS 1,000 ML 150 ML IV CONT (08:56)
--- NOTE | 2022-05-17 09:25 | WPDANESEPPF ---
Anes - Initial Pre Proc Eval Procedure: Operation Date: 05/17/22 10:00 Proposed Procedures p Screening Colonoscopy - Deni Elam MD Date/Time: 05/17/22 09:25 Surgeon: Deni Elam MD Pre Op Diagnosis: neoplasm screening, hx of colon polyps Patient Data Age: 56 Gender: M Height: 1.85 m Weight: 121.5 kg Last Vital Signs Temp 97.9 F 05/17/22 08:44 Pulse 51 L 05/17/22 08:44 Resp 17 05/17/22 08:44 BP 134/78 05/17/22 08:44 Pulse Ox 99 05/17/22 08:44 O2 Del Method Room Air 05/17/22 08:44 Allergies Allergy/AdvReac Type Severity Reaction Status Date / Time Mushroom Allergy Severe HIVES Uncoded 05/17/22 08:43 Home Medications Medication Instructions Recorded Confirmed Type buspirone 10 mg tablet 5 mg PO DAILY #45 tabs 08/03/21 05/17/22 Rx simvastatin 80 mg tablet 80 mg PO DAILY #90 tabs 08/24/21 05/17/22 Rx metoprolol succinate 100 mg 100 mg PO DAILY #90 tabs 08/30/21 05/17/22 Rx tablet,extended release 24 hr levothyroxine 200 mcg tablet 200 mcg PO DAILY #90 tabs 10/05/21 05/17/22 Rx irbesartan 300 1 tablet PO DAILY #90 tabs 11/22/21 05/17/22 Rx mg-hydrochlorothiazide 12.5 mg tablet escitalopram oxalate 10 mg tablet 10 mg PO DAILY #90 tabs 11/25/21 05/17/22 Rx (Lexapro) hydralazine 50 mg tablet 50 mg PO BID 04/07/22 05/17/22 History hydrochlorothiazide 12.5 mg tablet 12.5 mg PO DAILY 04/07/22 05/17/22 History sod picosulf 10 mg-magnes 3.5 160 ml PO DAILY 2 doses #320 mL 04/25/22 05/17/22 Rx gram-citric 12 gram/160 mL oral solution (Clenpiq) Patient hx anesthesia problems: none Family hx anesthesia problems: none Results Review: All pre-operative results and documents have been reviewed as part of the pre-operative evaluation. 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 Encounter for wellness examination in adult Essential (primary) hypertension Fatigue Folliculitis Ganglion cyst Hypersomnia with sleep apnea Hypertension Hypothyroidism, unspecified TSH 2.89 with free T4 0.98 on 11/06/2021. Lateral epicondylitis of left elbow Mixed hyperlipidemia Total cholesterol 152, triglycerides 131, HDL 34 and LDL 77 on 11/06/2021. LUISITO on CPAP CPAP titration on 03/18/2021 with CPAP at 11 cm of pressure with 1 cm EPR with medium Chance FX nasal pillows with chin strap and heated humidity 04/05/2021. previous CPAP titration on 01/09/2013 with 8 cm water pressure with large nasal mask. Plantar wart of left foot (~08/03/21) Polyp of colon Seasonal allergic rhinitis Thyroid disorder Family History Family History Other Depression Social History Social History Smoking status: Never smoker Alcohol intake: current Drinks per week: 1 Alcohol use details: occasional social event Substance use: current Substance use type: marijuana Other substance usage details: once monthly Living arrangements: with family Spiritual care concerns: No Anes - Eval Final PreProcedure Day of Procedure 05/17/22 09:25 Patient weight: obese Heart: regular rate and rhythm Lungs: clear to auscultation Airway: Mallampati scale class II Neurological: alert and oriented Last oral intake: >/= 8 hours ASA classification: III Emergent: no Anesthetic plan: proceed Anesthesia type and monitoring: general GIVS and standard monitoring Results Review: All pre-operativ
--- NOTE | 2022-05-17 09:37 | PM.IMHP ---
H&P: HPI History of Present Illness Date/Time: 05/17/22 09:37 Chief Complaint: History of colon polyps. Narrative: This is a 56-year-old white male patient presents for screening colonoscopy. Patient has a history of colon polyp removed time of endoscopy 2017. Patient reports his current weight appetite and bowel movements are normal. He denies abdominal pain. Patient has had no bleeding. Family history is noncontributory. Patient presents today for screening colonoscopy. Review of Systems Review of Systems: Review of systems noncontributory. [facility] Past Medical History Medical History (Updated 05/17/22 @ 09:39 by Deni Elam MD) Abdominal pain Acute bronchitis Acute non-recurrent maxillary sinusitis Anxiety BMI 35.0-35.9,adult BMI 36.0-36.9,adult Chronic anxiety Chronic depression Chronic left-sided low back pain with sciatica Mild degenerative disc disease and arthritis of the lumbar spine on 08/03/2021 on x-ray Chronic neck pain Chronic pain of left knee Depression Elevated WBC count Encounter for prostate cancer screening PSA normal at 0.7 on 11/06/2021. Encounter for wellness examination in adult Essential (primary) hypertension Fatigue Folliculitis Ganglion cyst Hypersomnia with sleep apnea Hypertension Hypothyroidism, unspecified TSH 2.89 with free T4 0.98 on 11/06/2021. Lateral epicondylitis of left elbow Mixed hyperlipidemia Total cholesterol 152, triglycerides 131, HDL 34 and LDL 77 on 11/06/2021. LUISITO on CPAP CPAP titration on 03/18/2021 with CPAP at 11 cm of pressure with 1 cm EPR with medium Chance FX nasal pillows with chin strap and heated humidity 04/05/2021. previous CPAP titration on 01/09/2013 with 8 cm water pressure with large nasal mask. Plantar wart of left foot (~08/03/21) Polyp of colon Seasonal allergic rhinitis Thyroid disorder Family History Family History Other Depression Social History Social History Smoking status: Never smoker Alcohol intake: current Drinks per week: 1 Alcohol use details: occasional social event Substance use: current Substance use type: marijuana Other substance usage details: once monthly Living arrangements: with family Spiritual care concerns: No Meds Home Medications and Allergies Home Medications Medication Instructions Recorded Confirmed Type buspirone 10 mg tablet 5 mg PO DAILY #45 tabs 08/03/21 05/17/22 Rx simvastatin 80 mg tablet 80 mg PO DAILY #90 tabs 08/24/21 05/17/22 Rx metoprolol succinate 100 mg 100 mg PO DAILY #90 tabs 08/30/21 05/17/22 Rx tablet,extended release 24 hr levothyroxine 200 mcg tablet 200 mcg PO DAILY #90 tabs 10/05/21 05/17/22 Rx irbesartan 300 1 tablet PO DAILY #90 tabs 11/22/21 05/17/22 Rx mg-hydrochlorothiazide 12.5 mg tablet escitalopram oxalate 10 mg tablet 10 mg PO DAILY #90 tabs 11/25/21 05/17/22 Rx (Lexapro) hydralazine 50 mg tablet 50 mg PO BID 04/07/22 05/17/22 History hydrochlorothiazide 12.5 mg tablet 12.5 mg PO DAILY 04/07/22 05/17/22 History sod picosulf 10 mg-magnes 3.5 160 ml PO DAILY 2 doses #320 mL 04/25/22 05/17/22 Rx gram-citric 12 gram/160 mL oral solution (Clenpiq) Allergies Allergy/AdvReac Type Severity Reaction Status Date / Time Mushroom Allergy Severe HIVES Uncoded 05/17/22 08:43 Vital Signs Vital Signs - 24 hr 05/17/22 08:44 Temperature 97.9 F Pulse Rate 51 L Respiratory Rate 17 Blood Pressure 134/78 Pulse Oximetry 99 Oxygen Delivery Room Air Exam Narrative: Physical exam reveals patient to be alert. Vital signs stable. HEENT exam is unremarkable. Patient is anicteric. Lungs are clear to auscultation and percussion. Heart is without murmur or extra sounds. Abdominal exam bowel sounds are present soft nontender with no organomegaly. Digital external rectal exam is normal. Assessment and Plan
[2022-05-17 10:07] VITALS: BP 125/70; PULSE 52; RESP 16; O2SAT 96
[2022-05-17 10:17] VITALS: BP 116/72; PULSE 52; RESP 16; O2SAT 96
[2022-05-17 10:27] VITALS: BP 125/78; PULSE 59; RESP 20; O2SAT 98
== END 2022-05-17 10:41 | disposition home or self-care (01) ==
PROVIDERS: PCP Physician Assistant; Visit Provider Internal Medicine Gastroenterology
PROC: 0DJD8ZZ Inspection of Lower Intestinal Tract, Via Natural or Artificial Opening Endoscopic (ICD-10-PCS; CPT 45378; principal; 2022-05-17 10:00)
DX: Z12.11 Encounter for screening for malignant neoplasm of colon (principal); Z86.010 Personal history of colon polyps; K64.8 Other hemorrhoids; K57.30 Diverticulosis of large intestine without perforation or abscess without bleeding; F41.9 Anxiety disorder, unspecified; F32.A Depression, unspecified; I10 Essential (primary) hypertension; R53.83 Other fatigue; G47.33 Obstructive sleep apnea (adult) (pediatric); E78.2 Mixed hyperlipidemia; E07.9 Disorder of thyroid, unspecified; F12.90 Cannabis use, unspecified, uncomplicated; E03.9 Hypothyroidism, unspecified; E66.9 Obesity, unspecified; Z68.35 Body mass index [BMI] 35.0-35.9, adult
CPT/HCPCS: 45378; J2704; J7120

== ENCOUNTER 2022-09-17 07:44 | Outpatient (CLI) | payer OTHER, SELFPAY ==
[2022-09-17 08:22] LABS: Basophils Absolute Auto 0.1 K/mm3 (0.0-0.1); Eosinophils Absolute Auto 0.2 K/mm3 (0-0.3); Eosinophils Percent Auto 2.8 % (0-4.4); Hematocrit 40.6 % (42.0-52.0); Hemoglobin 13.3 g/dL (14.0-18.0); Immature Granulocyte Absolute 0.03 K/mm3 (0.00-0.031); Immature Granulocyte Percent A 0.4 % (0-0.5); Lymphocytes Absolute Auto 2.16 K/mm3 (0.9-3.2); Mean Corpuscular HGB Conc 32.8 g/dl (32-36); Mean Corpuscular Hemoglobin 28.2 pg (26-34); Mean Corpuscular Volume 86.2 fl (80-100); Mean Platelet Volume 9.3 fl (7.4-10.4); Monocytes Absolute Auto 0.6 K/mm3 (0.1-0.6); Monocytes Percent Auto 7.5 % (2.6-8.5); Neutrophils Absolute Auto 5.2 K/mm3 (1.3-6.7); Neutrophils Percent Auto 62.3 % (45.5-73.1); Platelet Count Result 271 k/mm3 (150-375); Red Blood Count 4.71 M/mm3 (4.6-6.20); Red Cell Distribution Width 12.8 % (11.5-14.5); White Blood Count 8.3 K/mm3 (4.5-10.0)
[2022-09-17 08:41] LABS: Alanine Aminotransferase 30 U/L (6-50); Albumin Level 4.3 g/dL (3.5-5.1); Alkaline Phosphatase 52 U/L (38-126); Anion Gap 7 mmol/L (8-16); Aspartate Amino Transferase 31 U/L (17-59); Bilirubin,Total 0.7 mg/dL (0.2-1.3); Blood Urea Nitrogen 12 mg/dL (9-20); Calcium 8.4 mg/dL (8.4-10.2); Carbon Dioxide 29 mmol/L (22-30); Chloride 104 mmol/L (98-107); Cholesterol 167 mg/dL (0-200); Estimated Glomerular Filt Rate 52; Glucose 98 mg/dL (65-110); HDL Direct 44 mg/dL; Potassium 3.8 mmol/L (3.4-5.0); Sodium 140 mmol/L (137-145); Triglycerides 115 mg/dL (<150)
[2022-09-17 08:52] LABS: LDL Cholesterol Direct 80 mg/dL
[2022-09-17 09:10] LABS: Prostate Specific Antigen 0.9 ng/mL (< OR = 4.0)
[2022-09-17 09:52] LABS: Free T4 Free Thyroxine 0.87 ng/mL (0.78-2.19)
[2022-09-17 12:03] LABS: Appearance Urine Clear (Clear); Bilirubin Urine Negative (Negative); Blood Urine Trace-intact (Negative); Color Urine Yellow (Yellow); Glucose Urine UA Negative (Negative); Ketones Urine Negative (Negative); Leukocyte Esterase Ur Negative LEU/UL (Negative); Nitrate Urine Negative (Negative); Protein Urine Negative (Negative); Urobilinogen Urine 0.2 mg/dL (<2.0)
[2022-09-17 12:10] LABS: Add Urine Microscopic? YES; RBC Urine 0-2 /hpf (0-2); Squamous Epithelial Cell Urine Rare /hpf (Few)
== END 2022-09-17 07:45 | disposition home or self-care (01) ==
LOC: ANHLAB 07:46
PROVIDERS: PCP Physician Assistant; Visit Provider Physician Assistant
DX: E78.5 Hyperlipidemia, unspecified (principal); E03.9 Hypothyroidism, unspecified; Z79.899 Other long term (current) drug therapy; Z13.1 Encounter for screening for diabetes mellitus; Z12.5 Encounter for screening for malignant neoplasm of prostate
CPT/HCPCS: 36415; 80053; 80061; 81001; 83036; 84153; 84439; 84443; 85025; G0103

== ENCOUNTER 2023-03-23 11:56 | Outpatient (CLI) | payer OTHER, SELFPAY ==
[2023-03-23 13:13] LABS: Albumin Level 4.4 g/dL (3.5-5.1); Anion Gap 6 mmol/L (8-16); Blood Urea Nitrogen 14 mg/dL (9-20); Calcium 8.8 mg/dL (8.4-10.2); Carbon Dioxide 28 mmol/L (22-30); Chloride 107 mmol/L (98-107); Estimated Glomerular Filt Rate 52; Glucose 140 mg/dL (65-110); Phosphorus 2.3 mg/dL (2.5-4.5); Potassium 3.4 mmol/L (3.4-5.0); Sodium 141 mmol/L (137-145)
[2023-03-23 18:49] LABS: Creatinine Urine 315.2 mg/dL
[2023-03-23 19:02] LABS: Total Protein Urine Random < 5 mg/dL; Ur Ttl Prot Creatinine Ratio < 0.02 mg/mg (0-0.20)
== END 2023-03-23 11:57 | disposition home or self-care (01) ==
LOC: ANHLAB 11:57
PROVIDERS: PCP Physician Assistant; Visit Provider Internal Medicine Nephrology
DX: I12.9 Hypertensive chronic kidney disease with stage 1 through stage 4 chronic kidney disease, or unspecified chronic kidney disease (principal); N18.2 Chronic kidney disease, stage 2 (mild)
CPT/HCPCS: 36415; 80069; 82570; 84156

== ENCOUNTER 2023-04-24 08:39 | Outpatient (CLI) | payer OTHER, SELFPAY ==
[2023-04-24 09:04] LABS: Basophils Absolute Auto 0.1 K/mm3 (0.0-0.1); Basophils Percent Auto 0.7 % (0.2-1.2); Eosinophils Absolute Auto 0.2 K/mm3 (0-0.3); Eosinophils Percent Auto 2.4 % (0-4.4); Hematocrit 41.7 % (42.0-52.0); Hemoglobin 13.8 g/dL (14.0-18.0); Immature Granulocyte Absolute 0.03 K/mm3 (0.00-0.031); Immature Granulocyte Percent A 0.4 % (0-0.5); Lymphocytes Absolute Auto 2.08 K/mm3 (0.9-3.2); Lymphocytes Percent Auto 24.8 % (18.3-44.2); Mean Corpuscular HGB Conc 33.1 g/dl (32-36); Mean Corpuscular Volume 87.6 fl (80-100); Mean Platelet Volume 9.3 fl (7.4-10.4); Monocytes Absolute Auto 0.6 K/mm3 (0.1-0.6); Monocytes Percent Auto 6.5 % (2.6-8.5); Neutrophils Absolute Auto 5.5 K/mm3 (1.3-6.7); Neutrophils Percent Auto 65.2 % (45.5-73.1); Platelet Count Result 231 k/mm3 (150-375); Red Blood Count 4.76 M/mm3 (4.6-6.20); White Blood Count 8.4 K/mm3 (4.5-10.0)
[2023-04-24 09:15] LABS: Alanine Aminotransferase 25 U/L (6-50); Albumin Level 4.3 g/dL (3.5-5.1); Alkaline Phosphatase 54 U/L (38-126); Aspartate Amino Transferase 27 U/L (17-59); Bilirubin,Total 0.7 mg/dL (0.2-1.3); Cholesterol 155 mg/dL (0-200); HDL Direct 41 mg/dL; Triglycerides 122 mg/dL (<150)
[2023-04-24 09:16] LABS: Hemoglobin A1C 5.7 % (<5.7)
[2023-04-24 09:26] LABS: LDL Cholesterol Direct 78 mg/dL
[2023-04-24 09:44] LABS: Free T4 Free Thyroxine 1.19 ng/mL (0.78-2.19)
[2023-05-01 16:42] LABS: Triiodothyronine T3 Free 2.3 pg/mL (2.3-4.2)
== END 2023-04-24 08:40 | disposition home or self-care (01) ==
LOC: ANHLAB 08:41
PROVIDERS: PCP Physician Assistant; Visit Provider Physician Assistant
DX: E03.9 Hypothyroidism, unspecified (principal); R73.03 Prediabetes; E78.5 Hyperlipidemia, unspecified; Z79.899 Other long term (current) drug therapy
CPT/HCPCS: 36415; 80061; 80076; 83036; 84439; 84443; 84481; 85025

== ENCOUNTER 2023-10-18 16:20 | Outpatient (CLI) | payer OTHER, SELFPAY ==
[2023-10-18 16:46] LABS: Basophils Percent Auto 0.6 % (0.2-1.2); Eosinophils Absolute Auto 0.1 K/mm3 (0-0.3); Eosinophils Percent Auto 1.7 % (0-4.4); Hematocrit 40.4 % (42.0-52.0); Hemoglobin 13.1 g/dL (14.0-18.0); Immature Granulocyte Absolute 0.02 K/mm3 (0.00-0.031); Immature Granulocyte Percent A 0.3 % (0-0.5); Lymphocytes Absolute Auto 2.27 K/mm3 (0.9-3.2); Lymphocytes Percent Auto 32.6 % (18.3-44.2); Mean Corpuscular HGB Conc 32.4 g/dl (32-36); Mean Corpuscular Hemoglobin 28.2 pg (26-34); Mean Corpuscular Volume 87.1 fl (80-100); Mean Platelet Volume 9.4 fl (7.4-10.4); Monocytes Absolute Auto 0.6 K/mm3 (0.1-0.6); Monocytes Percent Auto 8.5 % (2.6-8.5); Neutrophils Absolute Auto 3.9 K/mm3 (1.3-6.7); Neutrophils Percent Auto 56.3 % (45.5-73.1); Platelet Count Result 226 k/mm3 (150-375); Red Blood Count 4.64 M/mm3 (4.6-6.20); Red Cell Distribution Width 12.8 % (11.5-14.5)
[2023-10-18 16:54] LABS: Creatinine Urine 292.6 mg/dL
[2023-10-18 16:56] LABS: Total Protein Urine Random < 5 mg/dL; Ur Ttl Prot Creatinine Ratio < 0.02 mg/mg (0-0.20)
[2023-10-18 16:57] LABS: Alanine Aminotransferase 30 U/L (6-50); Albumin Level 4.5 g/dL (3.5-5.1); Alkaline Phosphatase 60 U/L (38-126); Aspartate Amino Transferase 39 U/L (17-59); Bilirubin,Total 1.2 mg/dL (0.2-1.3); Cholesterol 129 mg/dL (0-200); HDL Direct 35 mg/dL; Triglycerides 80 mg/dL (<150)
[2023-10-18 16:58] LABS: Albumin Level 4.6 g/dL (3.5-5.1); Anion Gap 11 mmol/L (8-16); Blood Urea Nitrogen 19 mg/dL (9-20); Calcium 9.4 mg/dL (8.4-10.2); Carbon Dioxide 28 mmol/L (22-30); Chloride 100 mmol/L (98-107); Estimated Glomerular Filt Rate 52; Glucose 92 mg/dL (65-110); Phosphorus 3.3 mg/dL (2.5-4.5); Potassium 3.5 mmol/L (3.4-5.0); Sodium 139 mmol/L (137-145)
[2023-10-18 17:09] LABS: LDL Cholesterol Direct 67 mg/dL
[2023-10-18 17:31] LABS: Prostate Specific Antigen 1.1 ng/mL (< OR = 4.0)
[2023-10-18 18:08] LABS: Free T4 Free Thyroxine 1.79 ng/mL (0.78-2.19)
[2023-10-18 19:54] LABS: Hemoglobin A1C 5.7 % (<5.7)
[2023-10-21 07:46] LABS: Triiodothyronine T3 Free 2.7 pg/mL (2.3-4.2)
== END 2023-10-18 16:21 | disposition home or self-care (01) ==
LOC: ANHLAB 16:22
PROVIDERS: PCP Physician Assistant; Visit Provider Internal Medicine Nephrology
DX: I12.9 Hypertensive chronic kidney disease with stage 1 through stage 4 chronic kidney disease, or unspecified chronic kidney disease (principal); N18.31 Chronic kidney disease, stage 3a; E03.9 Hypothyroidism, unspecified; R73.03 Prediabetes; E78.5 Hyperlipidemia, unspecified; Z79.899 Other long term (current) drug therapy; Z12.5 Encounter for screening for malignant neoplasm of prostate
CPT/HCPCS: 36415; 80061; 80069; 80076; 82570; 83036; 84153; 84156; 84439; 84443; 84481; 85025; G0103

== ENCOUNTER 2024-05-09 08:15 | Outpatient (CLI) | payer OTHER, SELFPAY ==
[2024-05-09 08:51] LABS: Albumin Level 4.5 g/dL (3.5-5.1); Anion Gap 7 mmol/L (4-12); Blood Urea Nitrogen 15 mg/dL (9-20); Calcium 8.9 mg/dL (8.4-10.2); Carbon Dioxide 32 mmol/L (22-30); Chloride 101 mmol/L (98-107); Estimated Glomerular Filt Rate > 60; Glucose 96 mg/dL (65-110); Phosphorus 3.2 mg/dL (2.5-4.5); Potassium 3.8 mmol/L (3.4-5.0); Sodium 140 mmol/L (137-145)
[2024-05-09 09:16] LABS: Creatinine Urine 261.8 mg/dL; Total Protein Urine Random 6 mg/dL; Ur Ttl Prot Creatinine Ratio 0.02 mg/mg (0-0.20)
== END 2024-05-09 08:16 | disposition home or self-care (01) ==
LOC: ANHLAB 08:17
PROVIDERS: PCP Physician Assistant; Visit Provider Internal Medicine Nephrology
DX: I12.9 Hypertensive chronic kidney disease with stage 1 through stage 4 chronic kidney disease, or unspecified chronic kidney disease (principal); N18.31 Chronic kidney disease, stage 3a
CPT/HCPCS: 36415; 80069; 82570; 84156

== ENCOUNTER 2024-06-01 08:37 | Outpatient (CLI) | payer OTHER, SELFPAY ==
[2024-06-01 09:54] LABS: Alanine Aminotransferase 18 U/L (6-50); Albumin Level 4.3 g/dL (3.5-5.1); Alkaline Phosphatase 57 U/L (38-126); Anion Gap 5 mmol/L (4-12); Aspartate Amino Transferase 29 U/L (17-59); Bilirubin,Total 1.1 mg/dL (0.2-1.3); Blood Urea Nitrogen 16 mg/dL (9-20); Calcium 8.9 mg/dL (8.4-10.2); Carbon Dioxide 33 mmol/L (22-30); Chloride 102 mmol/L (98-107); Cholesterol 133 mg/dL (0-200); Estimated Glomerular Filt Rate > 60; Glucose 96 mg/dL (65-110); HDL Direct 44 mg/dL; Potassium 3.7 mmol/L (3.4-5.0); Sodium 140 mmol/L (137-145); Triglycerides 63 mg/dL (<150)
[2024-06-01 10:06] LABS: LDL Cholesterol Direct 62 mg/dL
[2024-06-01 10:10] LABS: Free T4 Free Thyroxine 1.24 ng/mL (0.78-2.19)
[2024-06-01 10:26] LABS: Prostate Specific Antigen 1.1 ng/mL (< OR = 4.0)
[2024-06-01 10:27] LABS: Hemoglobin A1C 5.8 % (<5.7)
[2024-06-01 10:44] LABS: Basophils Absolute Auto 0.1 K/mm3 (0.0-0.1); Basophils Percent Auto 0.7 % (0.2-1.2); Eosinophils Absolute Auto 0.2 K/mm3 (0-0.3); Eosinophils Percent Auto 2.8 % (0-4.4); Hematocrit 41.5 % (42.0-52.0); Hemoglobin 13.6 g/dL (14.0-18.0); Immature Granulocyte Absolute 0.02 K/mm3 (0.00-0.031); Immature Granulocyte Percent A 0.3 % (0-0.5); Lymphocytes Absolute Auto 2.11 K/mm3 (0.9-3.2); Lymphocytes Percent Auto 29.3 % (18.3-44.2); Mean Corpuscular HGB Conc 32.8 g/dl (32-36); Mean Corpuscular Hemoglobin 28.6 pg (26-34); Mean Corpuscular Volume 87.2 fl (80-100); Mean Platelet Volume 9.9 fl (7.4-10.4); Monocytes Absolute Auto 0.5 K/mm3 (0.1-0.6); Monocytes Percent Auto 7.2 % (2.6-8.5); Neutrophils Absolute Auto 4.3 K/mm3 (1.3-6.7); Neutrophils Percent Auto 59.7 % (45.5-73.1); Platelet Count Result 235 k/mm3 (150-375); Red Blood Count 4.76 M/mm3 (4.6-6.20); Red Cell Distribution Width 13.2 % (11.5-14.5); White Blood Count 7.2 K/mm3 (4.5-10.0)
[2024-06-01 11:01] LABS: Folic Acid 10.2 ng/mL (2.76->20)
== END 2024-06-01 08:38 | disposition home or self-care (01) ==
LOC: ANHLAB 08:39
PROVIDERS: PCP Physician Assistant; Visit Provider Physician Assistant
DX: E78.5 Hyperlipidemia, unspecified (principal); E03.9 Hypothyroidism, unspecified; Z12.5 Encounter for screening for malignant neoplasm of prostate; Z13.1 Encounter for screening for diabetes mellitus; Z79.899 Other long term (current) drug therapy
CPT/HCPCS: 36415; 80053; 80061; 82607; 82746; 83036; 84153; 84439; 84443; 85025

== ENCOUNTER 2024-11-10 08:55 | Emergency (ER) | payer OTHER, SELFPAY ==
[2024-11-10 09:18] VITALS: BP 175/82; PULSE 81; RESP 16; TEMP 36.7; O2SAT 100
--- NOTE | 2024-11-10 09:35 | ED.URI ---
HPI - URI/Sore Throat General Chief Complaint: Upper Respiratory Infection Stated Complaint: Flu Symptoms Time Seen by Provider: 11/10/24 09:25 Source: patient Mode of arrival: ambulatory Limitations: no limitations History of Present Illness HPI Narrative: Andrés is a 5-year-old male patient presenting to the clinic today with complaints of cough, congestion, and headache that started Monday. He reports he was sick for approximately 2 weeks and treated for a sinus infection. States he felt better after finishing the antibiotics however on Monday he started with these other symptoms. 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 MD elicited complaint: cough, nasal congestion and other (Headache) Related Data Home Medications ?Medication ?Instructions ?Recorded ?Confirmed ?Last Taken ?Type amoxicillin 875 mg-potassium tablet 11/10/24 Unknown History clavulanate 125 mg tablet irbesartan 300 tablet 11/10/24 Unknown History mg-hydrochlorothiazide 12.5 mg tablet levothyroxine 175 mcg tablet mcg 11/10/24 Unknown History (Synthroid) Allergies Allergy/AdvReac Type Severity Reaction Status Date / Time Mushroom Allergy Severe HIVES Uncoded 05/16/24 09:16 Review of Systems Review of Systems: Pertinent positives per HPI. Patient denies any fever, chills, rash, headache, visual changes, dizziness, cough, shortness of breath, chest pain, palpitations, nausea, vomiting, diarrhea, constipation, abdominal pain, or any urinary issues. [facility] Past Medical History Medical History BMI 35.0-35.9,adult Elevated WBC count Plantar wart of left foot (~08/03/21) Seasonal allergic rhinitis Chronic neck pain Chronic left-sided low back pain with sciatica Mild degenerative disc disease and arthritis of the lumbar spine on 08/03/2021 on x-ray Abdominal pain Hypersomnia with sleep apnea Fatigue Folliculitis Lateral epicondylitis of left elbow BMI 36.0-36.9,adult Polyp of colon Acute bronchitis Acute non-recurrent maxillary sinusitis Chronic depression Encounter for prostate cancer screening PSA normal at 0.7 on 11/06/2021. Encounter for wellness examination in adult Chronic pain of left knee LUISITO on CPAP CPAP titration on 03/18/2021 with CPAP at 11 cm of pressure with 1 cm EPR with medium Chance FX nasal pillows with chin strap and heated humidity 04/05/2021. previous CPAP titration on 01/09/2013 with 8 cm water pressure with large nasal mask. Mixed hyperlipidemia Total cholesterol 152, triglycerides 131, HDL 34 and LDL 77 on 11/06/2021. Hypothyroidism, unspecified TSH 2.89 with free T4 0.98 on 11/06/2021. Chronic anxiety Essential (primary) hypertension Ganglion cyst Hypertension Anxiety Thyroid disorder Depression Family History Family History Other Depression Social History Social History Smoking status: Never smoker Alcohol intake: current Drinks per week: 1 Alcohol use details: occasional social event Substance use: current Substance use type: marijuana Other substance usage details: once monthly Do You Feel Safe in your Home?: Yes Lack of Transportation: No Lack of Food: Never True Current Housing: I Have Housing Concerned About Future Housing: No Difficulty Paying Gas/Electric Bills: No Difficulty Paying for Meds: No Currently Unemployed: No Education: Bachelor's Degree Difficulty w/ Childcare or Family Care: No Living arrangements: with family Gender identity (if verbalized by the patient): Male Spiritual care concerns: No Comments At the time of my signature, I reviewed and agree with the nursing past medical, surgical, social, and family history. There is no relevant family history pertinent to the patient complaint. Exam Narrative: General: Well-developed, well nourished, in no apparent distress Head: Normocephalic, atraumatic Eyes: Pupils equally round and reactive to light bilaterally, EOM intact, sclera and conjunctive clear, no discharge, lids normal Ears: TMs intact and congested, ear canals clear, no drainage, grossly hearing normal. Nose: Nares patent, clear nasal discharge, no inflammation, no sinus tenderness. Mouth: Oral pharynx without lesions or masses, good dentition, MMM. Neck: Supple, trachea midline, no enlargement of anterior or posterior cervical nodes, no thyroid masses or goiter palpable. Cardio: Regular rate and rhythm, s1 and s2 normal, no murmur appreciated. Resp: Clear to auscultation bilaterally, no rhonchi, rales, wheezing or rubs Course Course Emergency Course: Portions of this record may have been created with voice recognition software. Level of Care: Express Care Visit Vital Signs Vital signs: Vital Signs Temperature 36.7 C 11/10/24 09:18 Pulse Rate 81 11/10/24 09:18 Respiratory Rate 16 11/10/24 09:18 Blood Pressure 175/82 H 11/10/24 09:18 Pulse Oximetry 100 11/10/24 09:18 Temperature 36.7 C 11/10/24 09:18 Pulse Rate 81 11/10/24 09:18 Respiratory Rate 16 11/10/24 09:18 Blood Pressure 175/82 H 11/10/24 09:18 Pulse Oximetry 100 11/10/24 09:18 Vital signs reviewed MDM - URI/Sore Throat MDM Narrative Medical decision making narrative: At the time of visit patient is resting comfortably on the exam table. Patient appears to be nontoxic. Labs: COVID and influenza testing was performed. Influenza testing was negative. COVID was positive Plan: Patient has COVID. Note was given. Supportive measures were discussed with the patient and they voiced understanding discharge instructions and agrees to treatment plan. Return precautions reviewed Differential Diagnosis Differential diagnosis: Likely upper respiratory infection, otitis media, sinusitis, viral infection, bronchitis, influenza, pharyngitis and other (COVID) Discharge Plan Discharge Clinical Impression: COVID-19 Patient Disposition: Home, Self-Care Condition: Stable Instructions: Antibiotic Form, How to Recover from COVID-19 at Home (ED) Additional Instructions: COVID testing was positive in the clinic today. Influenza testing was negative. May take Coricidin HBP for cold/flu symptoms Increase fluids and stay well hydrated Tylenol/motrin for pain/fever Flonase and OTC antihistamines as directed Vicks vapor rub to open sinuses Sinus rinses for congestion Cepacol spray, cough drops, throat lozenges, warm tea with honey/lemon, gargle salt water to soothe throat BRAT diet for diarrhea Clear liquids x 24 hours then advance as tolerated for nausea/vomiting Go to the ED if you develop a worsening in your condition- high fever not controlled by Tylenol or Motrin, dehydration, weakness, lethargy, shortness of breath, or chest pain. Follow up with your PCP in 3-5 days if symptoms persist. Patient Language: French Prescriptions: No Action levothyroxine [Synthroid] 175 mcg tablet irbesartan-hydrochlorothiazide 300-12.5 mg tablet amoxicillin-pot clavulanate 875-125 mg tablet escitalopram oxalate [Lexapro] 10 mg tablet 10 mg PO DAILY Qty: 90 3RF simvastatin 80 mg tablet 80 mg PO DAILY Qty: 90 3RF hydralazine 100 mg tablet 100 mg PO TID Qty: 90 1RF labetalol 200 mg tablet See Rx Instructions .ROUTE .COMPLEX Qty: 180 3RF Dose Instruction: TAKE 1 TABLET IN THE MORNING AND 1 TABLET IN THE EVENING Rx Instructions: TAKE 1 TABLET IN THE MORNING AND 1 TABLET IN THE EVENING Follow-up/Referrals: Blanca,ANKUSH Victoria [Primary Care Provider] - Stand Alone Forms: Work/School Release IP Time of Disposition: 09:36 Quality NIHSS Nursing Documentation ED NIHSS nursing documentation: reviewed/agree
== END 2024-11-10 09:39 | disposition home or self-care (01) ==
PROVIDERS: Emergency Provider Nurse Practitioner Family; PCP Physician Assistant
DX: U07.1 COVID-19 (principal); F12.90 Cannabis use, unspecified, uncomplicated; I10 Essential (primary) hypertension; E78.2 Mixed hyperlipidemia; E03.9 Hypothyroidism, unspecified; G47.33 Obstructive sleep apnea (adult) (pediatric); F41.9 Anxiety disorder, unspecified; F32.A Depression, unspecified
CPT/HCPCS: 87635; 87804; 99211; 99212; G0463

== ENCOUNTER 2024-12-04 06:58 | Outpatient (CLI) | payer OTHER, SELFPAY ==
--- OUTSIDE RECORDS SUMMARY | 2024-12-04 07:01 | XMS_ITS | Data Portability ---
Author Organization [facility] Address [address] [place] [address] Care Team Providers Care Automatic Glove Former Name Role Phone SADIA KINSEY Primary Care Provider Unavailab le Assessment No assessment recorded. Plan of Treatment Reminders Order Date Submit Date Provider Last Modified By Organization Details Last Modified Time Details Appointments ANY 15 2024 03:30P M NADINE Smith Not available Not available Not available Lab rapid strep group A, throat 2024 025 [email or web address] In-Office Order, Internal Use Only DO Not Attach Compendium DO Not Attach Compendium, Do Not Delete/merge, [id number] 11/11/2024 00:35:02 influenza virus A + B + SARS-CoV- 2 (COVID19) Ag panel, rapid IA, upper respirato ry specimen 2024 025 [email or web address] In-Office Order, Internal Use Only DO Not Attach Compendium DO Not Attach Compendium, Do Not Delete/merge, [id number] 11/11/2024 00:35:02 Referral None recorded. Procedures None recorded. Surgeries None recorded. Imaging None recorded. Medication Orders amoxicill in 875 mg-potass ium clavulana te 125 mg tablet 2024 025 [id number], [address] [facility], [place], [place], [id number], 11/01/2024 17:47:22 Patient TargetsNo targets recorded. Patient Instructions Encounter Date Encounter Id Patient Instructions Last Modified By Organization Details Last Modified Time 11/01/2024 [id number] A healthy lifestyle: care instructions [email or web address] Not available 11/01/2024 17:47:16 Reason for Referral None Reported. Results Created Date Observation Date Name Description Value Unit Range Abnormal Flag Note LastModifiedBy Organization Detail LastModifiedTime 11/01/1911/01/2024 rapid strep group A, throa t Strep negati ve Not Available In-Office Order Internal Use Only DO Not Attach Compendium DO Not Attach Compendium, Do Not Delete/merge, 11/01/2024 17:56:05 11/01/1911/01/2024 influ cedric virus A + B + SARS- CoV-2 (COVI D19) Ag panel , rapid IA, upper respi rator y speci men Flu A negati ve Not Available In-Office Order Internal Use Only DO Not Attach Compendium DO Not Attach Compendium, Do Not Delete/merge, 11/01/2024 17:56:18 11/01/19 25 11/01/2024 influ cedric virus A + B + SARS- CoV-2 (COVI D19) Ag panel , rapid IA, upper respi rator y speci men Flu B negati ve Not Available In-Office Order Internal Use Only DO Not Attach Compendium DO Not Attach Compendium, Do Not Delete/merge, 11/01/2024 17:56:18 11/01/1911/01/2024 influ cedric virus A + B + SARS- CoV-2 (COVI D19) Ag panel , rapid IA, upper respi rator y speci men Rapid SARS CoV 2 Ag, QL IA, respiratory specimen negati ve Not Available In-Office Order Internal Use Only DO Not Attach Compendium DO Not Attach Compendium, Do Not Delete/merge, 11/01/2024 17:56:18 Result Notes None recorded. Problems Name Problem SNOMED Code Status Onset Date Resolution Date Notes Provider Name and Address Organization Details Recorded Time Benign essential hypertension 1253079 Active 2023 NADINE Smith Attn: Constanza melgar,[address] [facility], [place], [address], [facility] 16:04:37 Hyperlipidemia 45773151 Active 2023 NADINE Smith Attn: Accountin g,[address] [facility], [place], [address], [place] - [facility] 4 16:04:38 Hypothyroidism 89979093 Active 2023 NADINE Smith Attn: Accountin g,[address] [facility], [place], [address], [place] [facility] 4 16:04:39 Long-term drug therapy Active 2023 NADINE Smith Attn: Accountin g,[address] [facility], [place], [address], [place] - [facility] 4 16:04:39 Blood glucose outside reference range 250868423 Active 2023 NADINE Smith Attn: Accountin g,[address] [facility], [place], [address], [place] [facility] 4 16:30:39 Generalized anxiety disorder 00549707 Active 2023 NADINE Smith Attn: Accountin g,[address] [facility], [place], [address], [place] - [facility] 4 01:20:42 Body mass index 25-29 - overweight 738894615 Active 2023 NADINE Smith Attn: Accountin g,[address] [facility], [place], [address], [place] - [facility] 4 01:21:03 Body mass index 30+ - obesity 544816201 Active 2024 NADINE Smith Attn: Accountin g,[address] [facility], [place], [address], [place] - [facility] 5 00:35:08 Obesity 817152098 Active 2024 NADINE Smith Attn: Accountin g,[address] [facility], [place], [address], [place] - [facility] 5 00:35:09 Problem Notes None recorded. Medical Equipment None Reported. Allergies Allergen ID Allergen Name Allergen Category Reaction Reaction Severity Criticality Documentation Date Start Date Code Code System Note Provider Name and Address Organization Details Recorded Time 164149 cultivate d mushroom extract food Not available Not available Not available 06/05/2024 94018 17 RxNorm Not Available Not Available Not Available Medications Name Sig Start Date Stop Date Status Note LastModified by Organization Details LastModified Time clonidine HCl 0.1 mg tablet TAKE 1 TABLET BY MOUTH EVERY DAY NEEDED active Not Available Not Available No t Available labetalol 200 mg tablet one daily active Not Available Not Available No t Available azithromyci n 250 mg tablet 11/01 completed Not Available Not Available Not Available simvastatin 80 mg tablet TAKE 1 TABLET DAILY active Not Available Not Available No t Available Synthroid 175 mcg tablet Take 1 tablet every day by oral route. active Not Available Not Available No t Available hydralazine 100 mg tablet TAKE 1 TABLET BY MOUTH THREE TIMES DAILY active Not Available Not Available No t Available irbesartan 300 mg-hydrochl orothiazide 12.5 mg tablet TAKE 1 TABLET DAILY active Not Available Not Available No t Available amoxicillin 875 mg-potassiu m clavulanate 125 mg tablet TAKE 1 TABLET BY MOUTH EVERY 12 HOURS active Not Available Not Available No t Available escitalopra m 10 mg tablet Take 1 tablet every day by oral route. active Not Available Not Available No t Available Paxlovid 300 mg (150 mg x 2)-100 mg tablets in a dose pack FOLLOW PACKAGE DIRECTION S active Not Available Not Available No t Available Vitals Date Recorded Body height Respiratory rate Body mass index (BMI) Body weight Oxygen saturation Oxygen saturation in Arterial blood by Pulse oximetry Heart rate Systolic blood pressure Diastolic blood pressure Systolic blood pressure Diastolic blood pressure Provider Name and Address Organization Details Last Updated DateTime 4 187.96 cm 18 /min 29.7 kg/m2 088050. 84 g 98 % 98 % 60 /min 142 mm[Hg] 90 mm[Hg] 140 mm[Hg] 88 mm[Hg] Shant Martinez [place] - [facility] 4 16:53:14 Date Recorded Systolic blood pressure Diastolic blood pressure Provider Name and Address Organization Details Last Updated DateTime 06/05/2024 150 mm[Hg] 90 mm[Hg] NADINE Smith Attn: Accounting,[address] [facility], [place], [address], [facility] 06/05/2024 17:28:53 Date Recorded Body height Body mass index (BMI) Body weight Respiratory rate Oxygen saturation Oxygen saturation in Arterial blood by Pulse oximetry Heart rate Systolic blood pressure Diastolic blood pressure Provider Name and Address Organization Details Last Updated DateTime 187.96 cm 30.9 kg/m2 432808. 76 g 18 /min 97 % 97 % 70 /min 142 mm[Hg] 88 mm[Hg] Shant Martinez MA [facility] 17:23:40 Social History Question Answer Notes LastModified by Organizat ion Details LastModified Time Tobacco Smoking Status Never Smoker Shant Martinez [place] null, [facility] 06/05/2024 16:15:00 Do You Have An Advance Directive? Yes Information n ot available 06/05/2024 What Is Your Level Of Alcohol Consumption? None Information not available 06/05/2024 Are You Blind Or Do You Have Difficulty Seeing? Yes Information n ot available 06/05/2024 What Is Your Level Of Caffeine Consumption? Occasional Tea Information not available 06/05/2024 In The 14 Days Before Symptom Onset, Have You Had Close Contact With A Laboratory-confirm ed COVID-19 While That Case Was Ill? No Information n ot available 06/05/2024 In The 14 Days Before Symptom Onset, Have You Had Close Contact With A Person Who Is Under Investigation For COVID-19 While That Person Was Ill? No Information not available 06/05/2024 Have You Been To An Area Known To Be High Risk For COVID-19? No Information not available 06/05/2024 Are You Currently Employed? Yes Information not available 06/05/2024 Are You Deaf Or Do You Have Serious Difficulty Hearing? Yes Information not available 06/05/2024 What Type Of Diet Are You Following? 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 No Information not available 06/05/2024 What Was The Date Of Your Most Recent Tobacco Screening? 11/01/2024 Information not available 11/01/2024 What Is Your Relationship Status? Information not available 06/05/2024 Do You Use Your Seat Belt Or Car Seat Routinely? Yes Information not available 06/05/2024 Do You Have Smoke And Carbon Monoxide Detectors In Your Home? Yes Information not available 06/05/2024 Do You Use Any Illicit Or Recreational Drugs? No Information not available 06/05/2024 Do You Use Sunscreen Routinely? No Information not available 06/05/2024 Has Tobacco Cessation Counseling Been Provided? No Information not available 06/05/2024 Do You Or Have You Ever Used Any Other Forms Of Tobacco Or Nicotine? No Information not available 06/05/2024 Sex: Male Functional Status Question Answer Note LastModified by [employer] ion Details LastModified Time Are you able to care for yourself? Yes Information not available 06/05/2024 What is your exercise level? Occasional walk,hike, bike Information not available 06/05/2024 Mental Status None recorded. Family History Nothing Reported Notes:Pt. states that he franz sn't know to much about family Medical History Condition Response Coronary Artery Disease N Atrial Fibrillation N High Blood Pressure Y Thyroid Problems Y Depression Y COPD N Blood Clots N Anxiety Disorder Y Muscle, Joint, or Bone Problems N Cancer N High Cholesterol Y Immunizations Vaccine Type Date Status Note Provider Nam e and Address Organization Details Recorded Time COVID-19, mRNA, LNP-S, PF, 100 mcg/0.5mL dose or 50 mcg/0.25mL dose 11/18/2020 completed ANDREW Hui [place] - [facility] 11/01/2024 09:03:03 COVID-19, mRNA, LNP-S, PF, 100 mcg/0.5mL dose or 50 mcg/0.25mL dose 12/22/2020 completed ANDREW Hui [place] - [facility] 11/01/2024 09:03:03 COVID-19, mRNA, LNP-S, PF, 100 mcg/0.5mL dose or 50 mcg/0.25mL dose 08/11/2021 completed Shant Martinez MA [facility] 11/01/2024 09:03:04 Past Encounters Encounter ID Performer Location Encounter Start Date Encounter Closed Date Diagnosis/Indication Diagnosis SNOMED-CT Code Diagnosis ICD10 Code Diagnosis Note [id number] NADINE Smith [facility] [employer] [facility] [place] [address] [place] [address] 06/05/2024 16:06:47 06/11/2024 17:11:27 Benign essential hypertension 9801572 I10 Patient is taking hydralazin e 100 mg daily, irbesartan hydrochlor othiazide 300/12.5 mg daily and labetalol 200 mg daily all of which is managed by Nephrology . Patient is elevated on his examinatio n today on 3 BP checks spaced out. We encouraged the patient to check his home readings and reach out to provider if he is not in goal range. Hyperlipidemia 96170601 E78.5 Lipid panel is stable on simvastati n 80 mg daily Hypothyroidism 19204572 E03.9 Thyroid function panels are normal range at Synthroid 175 mcg daily continue dosing Long-term drug therapy 383184415 Z79.899 All labs reviewed Blood gluc ose outside reference range 636742401 R73.09 5.8% A1c. Continue to monitor Adult heal th examination 807167974 Z00.01 Annual wellness exam complete Generalize d anxiety disorder 62706998 F41.1 Patient is stable on Lexapro 10 mg daily for mild anxiety Body mass index 25-29 - overweight 822498239 Z68.29 BMI is 29.7 [id number] NADINE Smith [facility] [employer] [facility] [place] [address] [place] [address] 11/01/2024 16:53:43 11/04/2024 15:18:08 Body mass index 30+ - obesity 816978859 Z68.30 BMI is 30.9 Obesity 236496449 E66.9 Upper resp iratory infection 14011954 J06.9 Patient is negative for strep negative for influenza a, B and COVID. We will start Augmentin 875 twice daily for 7 days in light of upper respirator y symptoms and swelling and puffiness of the left eye. Health Concerns Section Related Observation LastModified by Organization Detai ls LastModified Time None Recorded Concern Status LastModified by Organization Details LastModified Time None Recorded Advance Directives Directive Y: Payers Encounter Date Sequence Insurance Name Policy Number Policy Coy Covered Member ID Coy Member ID Guarantor Name 06/05/2024 1 [facility] [id number] Andrés Newman [id number] Andrés Newman 11/01/2024 1 [facility] [id number] Andrés Devine Quick [id number] Andrés Newman Notes Date Note Type Note Provider Name and Address Organization Details Recorded Time 4 text/html HyperlipidemiaReported bypatient.Notes:Patient is stable on simvastatin 80 mg daily and labs are [id number] katie bypatient.Notes:Patient is following with Nephrology and is on hydralazine 100 mg once daily, irbesartan 300 mg/HCTZ 12.5 mg daily, and labetalol 200 mg dailyThyroidReported bypatient.Notes:Patient is stable on Synthroid 175 mcg daily Patient also has a history of prediabetes with A1c of 5.8% on recent labs. He has lost a significant amount of weight with healthy diet and exercise changes and this has helped considerably. NADINE Smith Attn: Accounting,[address] [facility], [place], [address], [facility] 06/10/2024 01:21:18 5 text/html Upper Respiratory SymptomsReported bypatient.Notes:right upper eyelid swelling and drainage. sinus drainage, mucous, right side of throat sore mildly, NADINE Smith Attn: Accounting,[address] [facility], [place], [address], [facility] - [facility] 11/11/2024 00:35:28
--- OUTSIDE RECORDS SUMMARY | 2024-12-04 07:02 | XMS_ITS | Data Portability ---
Author Organization [place] [facility] [employer], Main Office Address [address] [place] [address] Assessment No assessment recorded. Plan of Treatment Reminders Order Date Submit Date Provider Last Modified By Organization Details Last Modified Time Details Appointments None recorded. Lab PSA, serum or plasma [address] Outpatient Registration Lab/Ekg, [address] [facility] [address], [place], [address], 4 12:25:09 HbA1c (hemoglobi n A1c), blood [address] Outpatient Registration Lab/Ekg, [address], [place], [address], 4 12:25:08 CBC w/ auto diff [address] Outpatient Registration Lab/Ekg, [address], [place], [address], 4 12:25:09 hepatic function panel, serum [address] Outpatient Registration Lab/Ekg, [address], [place], [address], 4 12:25:09 lipid panel, serum [address] Outpatient Registration Lab/Ekg, [address], [place], [address], 4 12:25:09 TSH + free T4, serum 2023 024 [facility] Outpatient Registration Lab/Ekg, [address], [place], [address], 4 10:45:21 T3, free, serum or plasma 2023 024 [facility] Outpatient Registration Lab/Ekg, [address], [place], [address], 4 10:20:09 HbA1c (hemoglobi n A1c), blood 2022 023 TERRY Not available 3 12:39:16 CBC w/ auto diff 2022 023 TERRY Not available 3 12:39:16 hepatic function panel, serum 2022 023 [address] Not available 3 16:04:26 lipid panel, serum 2022 023 [address] Not available 3 16:04:26 TSH + free T4, serum 2022 023 TERRY Not available 3 12:39:16 T3, free, serum or plasma 2022 023 TERRY Not available 3 20:03:26 Referral None recorded. Procedures None recorded. Surgeries None recorded. Imaging None recorded. Medication Orders None recorded. Patient TargetsNo targets recorded. Patient InstructionsNo instructions recorded. Reason for Referral None Reported. Results Created Date Observation Date Name Description Value Unit Range Abnormal Flag Note LastModifiedBy Organization Detail LastModifiedTime Result Notes None recorded. Problems Name Problem SNOMED Code Status Onset Date Resolution Date Notes Provider Name and Address Organization Details Recorded Time Benign essential hypertension 1612641 Active 2021 Not Available [facility] 3 01:08:38 Mixed anxiety and depressive disorder 482029026 Active 2021 Not Available [facility] 3 01:08:38 Labile essential hypertension 298991841 Active 2021 Not Available [facility] 3 01:08:38 Hypertensive disorder 52149909 Active 2021 Not Available [facility] 3 01:08:38 Hypothyroidis m 75045407 Active 2021 [facility] Available [facility] 01[facility]08[facility]38 Hyperlipidemi a 38563360 Active 2021 Not Available [facility] 3 01:08:38 Impaired glucose tolerance 5255752 Active 2022 Not Available [facility] 3 01:08:38 Problem Notes None recorded. Procedures Surgical History Date Name Laterality Status Provider Name and Address Organization Details Recorded Time Orthopedic Procedure completed Not Available [facility] 12/08/2022 01:07:16 Imaging Results None recorded. Procedure Notes None recorded. Medical Equipment None Reported. Allergies Allergen ID Allergen Name Allergen Category Reaction Reaction Severity Criticality Documentation Date Start Date Code Code System Note Provider Name and Address Organization Details Recorded Time 68[address] cultivate d mushroom extract food Not available Not available Not available 12/08/2022 31884 17 RxNorm Not Available [facility] 3 01:09:37 Medications Name Sig Start Date Stop Date Status Note LastModified by Organization Details LastModified Time clonidine HCl 0.1 mg tablet TAKE 1 TABLET BY MOUTH EVERY DAY NEEDED active Not Available Not Available No t Available labetalol 200 mg tablet active Not Available Not Available Not Available Synthroid 200 mcg tablet TAKE 1 TABLET BY MOUTH DAILY 04/18 completed Not Available Not Available Not Available metoprolol succinate ER 100 mg tablet,exte nded release 24 hr TAKE 1 TABLET BY MOUTH DAILY 09/07 completed Not Available Not Available Not Available hydralazine 25 mg tablet 04/13 completed Not Available Not Available Not Available acetaminoph en 300 mg-codeine 30 mg tablet TAKE 1 TABLET BY MOUTH EVERY 6 HOURS NEEDED. MAY TAKE 1-2 TABLETS DIRECTED FOR HEADACHE / PAIN 04/18 completed Not Available Not Available Not Available simvastatin 80 mg tablet TAKE 1 TABLET DAILY active Not Available Not Available No t Available Synthroid 175 mcg tablet TAKE 1 TABLET DAILY active Not Available Not Available No t Available benzonatate 100 mg capsule TAKE 1 CAPSULE BY MOUTH EVERY 8 HOURS NEEDED 07/11 completed Not Available Not Available Not Available hydralazine 100 mg tablet 10/17 completed Not Available Not Available Not Available buspirone 10 mg tablet Take 1 tablet every day by oral route for 90 days. 04/18 completed Not Available Not Available Not Available irbesartan 300 mg-hydrochl orothiazide 12.5 mg tablet TAKE 1 TABLET DAILY active Not Available Not Available No t Available codeine 10 mg-guaifene sin 100 mg/5 mL oral liquid TAKE 10 ML BY MOUTH EVERY 6 HOURS NEEDED 07/11 completed Not Available Not Available Not Available hydralazine 50 mg tablet Take 2 tablets every day by oral route for 90 days. 04/17 completed Not Available Not Available Not Available metoprolol succinate ER 25 mg tablet,exte nded release 24 hr TAKE 1 TABLET BY MOUTH EVERY DAY WITH 100MG 04/12 completed Not Available Not Available Not Available fluticasone propionate 50 mcg/actuati on nasal spray,suspe nsion 04/13 completed Not Available Not Available Not Available doxycycline hyclate 100 mg tablet TAKE 1 TABLET BY MOUTH TWICE DAILY FOR 10 DAYS 07/11 completed Not Available Not Available Not Available escitalopra m 10 mg tablet TAKE 1 TABLET DAILY active Not Available Not Available No t Available duloxetine 30 mg capsule,del ayed release TAKE 1 CAPSULE BY MOUTH DAILY 04/13 completed Not Available Not Available Not Available L-Thyroxine 175mg daily 2021 active Not Available Not Available Not Avai lable hydrochloro thiazide 12.5 mg tablet 04/13 completed Not Available Not Available Not Available Clenpiq 10 mg-3.5 gram-12 gram/160 mL oral solution TAKE 160 ML BY MOUTH DAILY FOR 2 DOSES DIRECTED 04/18 completed Not Available Not Available Not Available Vitals Date Recorded Body mass index (BMI) Body height Oxygen saturation Oxygen saturation in Arterial blood by Pulse oximetry Heart rate Body temperature Body weight Systolic blood pressure Diastolic blood pressure Provider Name and Address Organization Details Last Updated DateTime 3 37.5 kg/m2 185.42 cm 98 % 98 % 68 /min 97.8 [degF] 003665. 23 g 140 mm[Hg] 90 mm[Hg] Not Available [facility] 3 01:08:06 Date Recorded Body height Oxygen saturation Oxygen saturation in Arterial blood by Pulse oximetry Heart rate Respiratory rate Body temperature Systolic blood pressure Diastolic blood pressure Provider Name and Address Organization Details Last Updated DateTime 2 185.42 cm 98 % 98 % 49 /min 16 /min 97.6 [degF] 160 mm[Hg] 100 mm[Hg] Not Available [facility] 3 01:08:05 Date Recorded Body height Oxygen saturation Oxygen saturation in Arterial blood by Pulse oximetry Heart rate Body temperature Systolic blood pressure Diastolic blood pressure Provider Name and Address Organization Details Last Updated DateTime 2 185.42 cm 98 % 98 % 68 /min 97.1 [degF] 140 mm[Hg] 80 mm[Hg] Not Available [facility] 3 01:08:05 Date Recorded Body height Body mass index (BMI) Body weight Respiratory rate Oxygen saturation Oxygen saturation in Arterial blood by Pulse oximetry Heart rate Systolic blood pressure Diastolic blood pressure Provider Name and Address Organization Details Last Updated DateTime 3 185.42 cm 35.9 kg/m2 895991. 12 g 16 /min 97 % 97 % 62 /min 140 mm[Hg] 82 mm[Hg] LISSETTE Palumbo [employer] [facility] [employer] 3 09:27:24 Date Recorded Systolic blood pressure Diastolic blood pressure Provider Name and Address Organization Details Last Updated DateTime 04/18/2023 130 mm[Hg] 80 mm[Hg] NADINE Smith [address], [place], [address], [place] [facility] 04/18/2023 10:01:07 Date Recorded Body height Provider Name an d Address Organization Details Last Updated DateTime 10/17/2023 185.42 cm LISSETTE Palumbo [employer] [facility] [employer] 10/17/2023 16:28:38 Date Recorded Body mass index (BMI) Body weight Respiratory rate Oxygen saturation Oxygen saturation in Arterial blood by Pulse oximetry Systolic blood pressure Diastolic blood pressure Provider Name and Address Organization Details Last Updated DateTime 4 33.2 kg/m2 066248. 28 g 16 /min 98 % 98 % 130 mm[Hg] 70 mm[Hg] NADINE Smith [address], [place], [address], [employer] [facility] [employer] 4 17:12:43 Social History Question Answer Notes LastModified by Organizat ion Details LastModified Time Tobacco Smoking Status Never Smoker Not Available [facility] 12/08/2022 01:07:02 What Is Your Level Of Alcohol Consumption? Moderate [id number] Information not available 12/08/2022 What Is Your Level Of Caffeine Consumption? Heavy [id number] Information not available 12/08/2022 In The 14 Days Before Symptom Onset, Have You Had Close Contact With A Laboratory-confirm ed COVID-19 While That Case Was Ill? No [id number] Information not available 12/08/2022 In The 14 Days Before Symptom Onset, Have You Had Close Contact With A Person Who Is Under Investigation For COVID-19 While That Person Was Ill? No [id number] Information not available 12/08/2022 Are You Currently Employed? Yes [email or web address] Information not available 04/17/2023 What Type Of Diet Are You Following? 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 No [id number] Information not available 12/08/2022 Do You Use Insect Repellent Routinely? No [id number] 0846 Information not available 12/08/2022 What Is Your Relationship Status? [id number].[id number] 2659 Information not available 12/08/2022 Do You Use Your Seat Belt Or Car Seat Routinely? Yes [id number].[id number] 1540 Information not available 12/08/2022 Do You Have Smoke And Carbon Monoxide Detectors In Your Home? Yes MIGRATION.060484 2414 Information not available 12/08/2022 Do You Use Any Illicit Or Recreational Drugs? No [email or web address] Information not available 04/17/2023 Do You Use Sunscreen Routinely? Yes MIGRATION.430996 2236 Information not available 12/08/2022 Have You Recently Traveled Abroad? No MIGRATION.[id number] 4374 Information not available 12/08/2022 Do You Have Any Dietary Restrictions? No MIGRATION.625827 8273 Information not available 12/08/2022 Do You Or Have You Ever Used Any Other Forms Of Tobacco Or Nicotine? No MIGRATION.458089 3909 Information not available 12/08/2022 Sex: Unknown Functional Status Question Answer Note LastModified by Organizat ion Details LastModified Time What is your exercise level? Occasional [id number] Information not available 12/08/2022 Mental Status None recorded. Family History Relationship Description Onset Age of this Age Resolved Age Notes LastModified by Organization Details LastModified Time Mother Hypothyroidi sm [id number] Not available 12/08/2022 01:07:18 Father Heart disease [id number] Not available 12/08/2022 01:07:18 Medical History Condition Response ARTHRITIS Y USE OF BLOOD THINNERS Y ANXIETY DISORDER Y HYPOTHYROIDISM Y DEPRESSION (INCLUDING POST ) Y BACK / NECK PROBLEMS Y HYPERTENSION Y HIGH CHOLESTEROL / HYPERLIPIDEMIA Y Past Encounters Encounter ID Performer Location Encounter Start Date Encounter Closed Date Diagnosis/Indication Diagnosis SNOMED-CT Code Diagnosis ICD10 Code Diagnosis Note [id number] [facility] [address] [place] [address] 04/13/2022 00:00:00 04/13/2022 10:25:36 [id number] [facility] [place] [address] [place] [address] 07/11/2022 00:00:00 08/08/2022 18:03:27 [id number] [facility] [place] [address] [place] [address] 08/24/2022 00:00:00 09/07/2022 01:05:54 [id number] [facility] [place] [address] [place] [address] 10/17/2022 00:00:00 11/07/2022 00:04:49 [id number] NADINE Smith [facility] [place] [address] [place] [address] 04/18/2023 09:21:55 04/18/2023 10:02:10 Adult health examination 020835938 Z00.01 well exam completed Hypothyroidism 86454021 E03.9 on supplement and due for TFT panel Impaired g lucose tolerance 7181443 R73.03 following prediabete s and due for a1c Hyperlipidemia 60437605 E78.5 on statin therapy and due for fasting lipids Long-term drug therapy 321134988 Z79.899 due for annual CBC and LFT Body mass index 30+ - obesity 588902389 Z68.35 Benign ess ential hypertension 5101385 I10 stable at this time, follows with nephrology for BP management and renal fcn. [id number] NADINE Smith [facility] [place] [address] [place] [address] 10/17/2023 16:26:56 10/17/2023 17:10:53 Benign essential hypertension 6826482 I10 stable at this time, follows with nephrology for BP management and renal fcn. Hypothyroidism 37349271 E03.9 on supplement and due for TFT panel Impaired g lucose tolerance 1849919 R73.03 following prediabete s and due for a1c Hyperlipidemia 46728820 E78.5 on statin therapy and due for fasting lipids Long-term drug therapy 881237858 Z79.899 due for annual CBC and LFT Body mass index 30+ - obesity 230128397 Z68.35 30 pounds of weight loss in just over a month on weight loss system from [facility]. hcg type drops and controlled diet. Screening for malignant neoplasm of prostate 554981246 Z12.5 annual PSA is due Health Concerns Section Related Observation LastModified by Organization Detai ls LastModified Time None Recorded Concern Status LastModified by Organization Details LastModified Time None Recorded Advance Directives Directive None Recorded Payers Encounter Date Sequence Insurance Name Policy Number Policy Coy Covered Member ID Coy Member ID Guarantor Name 04/18/2023 1 [facility] [id number] Andrés Newman [id number] Andrés Newman 10/17/2023 1 [facility] [id number] Andrés Newman [id number] Andrés Newman Notes Date Note Type Note Provider Name and Address Organization Details Recorded Time 022 text/h tml HypertensionReported bypatient.Quality:weakness Severity:intense Onset/Timing:worse Context:exertion;at rest;wakes up from sleep Aggravating Factors:worse with activity;caffeine Self Care:not under emotional stress; checks blood pressure at home (range 180/100) Associated Symptoms:no shortness of breath; no palpitations;fatigue; chest tightnessNotes:complains of daily severe headaches, fatiguealso concerned about thyroid levels Not Available [facility] D[facility] 08/08/2022 18:03:27 022 text/h tml HypertensionReported bypatient.Quality:weakness Severity:intense Onset/Timing:worse Context:exertion;at rest;wakes up from sleep Alleviating Factors:medication Aggravating Factors:worse with activity;caffeine Self Care:not under emotional stress; checks blood pressure at home (range 140/80s 180/100) Associated Symptoms:no shortness of breath; no palpitations;fatigue; chest tightnessNotes:pt has seen renal specialist for blood pressure med changes. Not Available [facility] D[facility] 09/07/2022 01:05:54 023 text/h tml Anxiety/DepressionReported bypatient.Quality:symptoms worse during the day Severity:denies suicidal ideations; able to maintain relationships;interference with household activities;interference with sleep;interference with work Duration:symptoms lasting over 2 weeks Onset/Timing:still present Context:no major life stressors Modifying Factors:medications as directed Associated Symptoms:denies homicidal ideations; no significant weight gain; no significant weight loss; no visual/auditory hallucinations; no delusions; no shortness of breath; mood good; no anxiety; no crying spells; no panic; no isolation; sleeping well; appetite good; energy good; no apathy; maintaining functionalityHyperlipidemiaReported bypatient.Duration:chronic Control:usually well controlled Current Therapy:currently taking: (simvastatin 80mg) Compliance:compliant; compliant with diet;does not exercise Complications:no coronary artery disease; no peripheral artery disease; no cardiovascular disease Risk Factors:hypertensionHypertensionRepor katie bypatient.Duration:has noted for years Onset/Timing:better Alleviating Factors:medication Self Care:not under emotional stress Associated Symptoms:no shortness of breath; no fatigue; no palpitations; no decline in exercise capacity; no snoringHypothyroidismReported bypatient.Quality:not changing Duration:constant Onset/Timing:still present Context/Risk:normal thyroid levels; no history of head or neck radiation during childhood; no history of thyroid disease; no history of hyperthyroidism; no excess iron exposure;history of hypothyroidism Modifying Factors:medication Exerciseno exercise Associated Symptoms:no cold intolerance; no heat intolerance; no weight loss; no weight gain; no double vision; no dry eyes; no hoarseness; no difficulty swallowing; no neck masses; no deepening of the voice; no fast heart rate; no increased blood pressure; no palpitations; no chest pain; no chest tightess or pressure; no constipation; no diarrhea; no vomiting; no decreased appetite; no loose stools; no irregular menstrual periods; no excessive sweating; no joint pain; no numbness; no tingling of the hands or feet; no dry skin; no tremor; no nervousness; no anxiety; no depression; no fatigue; no sleep difficulties; no skin changes; no hair changes Not Available [facility] 11/07/2022 00:04:49 023 text/h tml Anxiety/DepressionReported bypatient.Quality:doesnt matter time of day. Severity:denies suicidal ideations; able to maintain relationships;interference with household activities;interference with sleep;interference with work Duration:symptoms lasting over 2 weeks Onset/Timing:still present Context:no major life stressors Associated Symptoms:denies homicidal ideations; no significant weight gain; no significant weight loss; no visual/auditory hallucinations; no delusions; no shortness of breathHyperlipidemiaReported bypatient.Duration:chronic Control:usually well controlled Compliance:compliant;noncompliant with diet;does not exercise Complications:no coronary artery disease; no peripheral artery disease; no cardiovascular disease Risk Factors:hypertensionHypertensionRepor katie bypatient.Duration:has noted for years Onset/Timing:better Alleviating Factors:medication Associated Symptoms:no shortness of breath; no fatigue; no palpitations; no decline in exercise capacity; no snoringHypothyroidismReported bypatient.Onset/Timing:still present Context/Risk:normal thyroid levels; no history of head or neck radiation during childhood; no history of thyroid disease; no history of hyperthyroidism; no excess iron exposure;history of hypothyroidism Modifying Factors:medication Exerciseno exercise Associated Symptoms:no cold intolerance; no heat intolerance; no weight loss; no weight gain; no double vision; no dry eyes; no hoarseness; no difficulty swallowing; no neck masses; no deepening of the voice; no fast heart rate; no increased blood pressure; no palpitations; no chest pain; no chest tightess or pressure; no constipation; no diarrhea; no vomiting; no decreased appetite; no loose stools; no irregular menstrual periods; no excessive sweating; no joint pain; no numbness; no tingling of the hands or feet; no dry skin; no tremor; no nervousness; no anxiety; no depression; no fatigue; no sleep difficulties; no skin changes; no hair changes Wellness NADINE Smith [address] [facility] [facility] [address], [address], [place] [facility] 05/08/2023 18:55:30 024 text/h tml Anxiety/DepressionReported bypatient.Quality:doesnt matter time of day. Severity:denies suicidal ideations; able to maintain relationships;interference with household activities;interference with sleep;interference with work Duration:symptoms lasting over 2 weeks Onset/Timing:still present Context:no major life stressors Associated Symptoms:denies homicidal ideations; no significant weight gain; no significant weight loss; no visual/auditory hallucinations; no delusions; no shortness of breathHyperlipidemiaReported bypatient.Duration:chronic Control:usually well controlled Compliance:compliant;noncompliant with diet;does not exercise Complications:no coronary artery disease; no peripheral artery disease; no cardiovascular disease Risk Factors:hypertensionHypertensionRepor katie bypatient.Duration:has noted for years Onset/Timing:better Alleviating Factors:medication Associated Symptoms:no shortness of breath; no fatigue; no palpitations; no decline in exercise capacity; no snoringHypothyroidismReported bypatient.Onset/Timing:still present Context/Risk:normal thyroid levels; no history of head or neck radiation during childhood; no history of thyroid disease; no history of hyperthyroidism; no excess iron exposure;history of hypothyroidism Modifying Factors:medication Exerciseno exercise Associated Symptoms:no cold intolerance; no heat intolerance; no weight loss; no weight gain; no double vision; no dry eyes; no hoarseness; no difficulty swallowing; no neck masses; no deepening of the voice; no fast heart rate; no increased blood pressure; no palpitations; no chest pain; no chest tightess or pressure; no constipation; no diarrhea; no vomiting; no decreased appetite; no loose stools; no irregular menstrual periods; no excessive sweating; no joint pain; no numbness; no tingling of the hands or feet; no dry skin; no tremor; no nervousness; no anxiety; no depression; no fatigue; no sleep difficulties; no skin changes; no hair changes NADINE Smith [address] [facility] [address], [place], [address], [place] [facility] 10/18/2023 14:49:34
--- OUTSIDE RECORDS SUMMARY | 2024-12-04 07:02 | XMS_ITS | Clinical Summary ---
Author Organization [facility] utifarzana Address [address] [place] [address] Phone Care Team Providers Care Algology Teacher Name Role Phone Esme Rios Primary Care Provider [phone] Allergies Active Allergy Reactions Criticality Noted Date Comments Mushroom Extract Complex (Do Not Select) Hives 10/13/2021 Medications Medication Sig Dispensed Refills Start Date End Date Status busPIRone (BUSPAR) 10 MG tablet 09/28/2021 Active DULoxetine (CYMBALTA) [address] capsule Take 30 mg by mouth 1 (one) time each day 08/03/2021 Active escitalopram (LEXAPRO) 10 MG tablet 08/14/2021 Active fluticasone (FLONASE) 50 MCG/ACT nasal spray 09/28/2021 Active irbesartan-hydroCHLO ROthiazide (AVALIDE) 300-12.5 MG per tablet 08/23/2021 Active levothyroxine (SYNTHROID) 200 MCG tablet Take 200 mcg by mouth 1 (one) time each day 09/06/2021 Active simvastatin (ZOCOR) 80 MG tablet 08/24/2021 Active hydroCHLOROthiazide (HYDRODIURIL) 12.5 MG tablet Take 1 tablet (12.5 mg total) by mouth 1 (one) time each day 30 tablet 2 11/17/2021 Active benzonatate (TESSALON) 100 MG capsule TAKE 1 CAPSULE BY MOUTH EVERY 8 HOURS NEEDED 06/17/2022 Active Synthroid 175 MCG tablet 06/30/2022 Active albuterol HFA (ProAir HFA) 108 (90 Base) MCG/ACT inhaler ProAir HFA 90 mcg/actuation aerosol inhaler INL 2 PFS PO Q 4 H PRN Active ezetimibe (Zetia) 10 MG tablet Zetia 10 mg tablet Active labetalol (NORMODYNE) 200 MG tablet Take 1 tablet (200 mg total) by mouth in the morning and 1 tablet (200 mg total) in the evening. 180 tablet 3 09/21/2022 Active hydrALAZINE (APRESOLINE) 100 MG tablet Take 1 tablet (100 mg total) by mouth in the morning and 1 tablet (100 mg total) in the evening. 60 tablet 1 10/10/2022 Active Active Problems Problem Noted Date Diagnosed Date Upper respiratory infection 09/21/2022 Osteoarthritis 10/13/2021 Obstructive sleep apnea syndrome 10/13/2021 Hypothyroidism 10/13/2021 Hypertension 10/13/2021 Hyperlipidemia 10/13/2021 Depressive disorder 10/13/2021 Abnormal renal function 10/13/2021 Immunizations Name Administration Dates Next Due Sars-cov-2, Unspecified 12/29/2020 Family History Medical History Relation Comments Kidney disease Neg Hx Social History Tobacco Use Types Packs/Day Years Used Date Smoking Tobacco: Never Smokeless Tobacco: Never Tobacco Cessation:Counseling Given: Not Answered Alcohol Use Standard Drinks/Week Comments Never 0 (1 standard drink = 0.6 oz pur e alcohol) Sex and Gender Information Value Date Recorded Sex Assigned at Not on file Gender Identity Not on file Sexual Orientation Not on file Last Filed Vital Signs Vital Sign Reading Time Taken Comments Blood Pressure 138/86 09/21/2022 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 Pulse - - Temperature 36.7 C (98 F) 09/21/2022 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 Respiratory Rate 18 09/21/2022 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 Oxygen Saturation - - Inhaled Oxygen Concentration - - Weight 127 kg (281 lb) 09/21/2022 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 Height 185.4 cm (6' 1 ) 09/21/2022 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 Body Mass Index 37.07 09/21/2022 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 Plan of Treatment Health Maintenance Due Date Last Done Comments Pneumococcal PPSV23 Highest Risk Adult (1 of 3 - PCV13 ) 1984 Influenza Vaccine (#1) 2024 Care Teams Algology Teacher Relationship Specialty Start Date End Date Esme Rios [place] [address] [place] [address] PCP - General Family Medicine 09/21/22
[2024-12-04 08:12] LABS: Anion Gap 8 mmol/L (4-12); Blood Urea Nitrogen 13 mg/dL (9-20); Calcium 8.8 mg/dL (8.4-10.2); Carbon Dioxide 30 mmol/L (22-30); Chloride 102 mmol/L (98-107); Estimated Glomerular Filt Rate > 60; Glucose 94 mg/dL (65-110); Phosphorus 3.6 mg/dL (2.5-4.5); Potassium 3.9 mmol/L (3.4-5.0); Sodium 140 mmol/L (137-145)
[2024-12-04 09:54] LABS: Creatinine Urine 200.7 mg/dL
[2024-12-04 10:04] LABS: Total Protein Urine Random < 5 mg/dL; Ur Ttl Prot Creatinine Ratio < 0.02 mg/mg (0-0.20)
== END 2024-12-04 06:59 | disposition home or self-care (01) ==
LOC: ANHLAB 06:59
PROVIDERS: PCP Physician Assistant; Visit Provider Internal Medicine Nephrology
DX: I12.9 Hypertensive chronic kidney disease with stage 1 through stage 4 chronic kidney disease, or unspecified chronic kidney disease (principal); N18.2 Chronic kidney disease, stage 2 (mild)
CPT/HCPCS: 36415; 80069; 82570; 84156

== ENCOUNTER 2024-12-28 08:37 | Outpatient (CLI) | payer OTHER, SELFPAY ==
--- NOTE | ~2024-12-28 | XR_ITS ---
EXAMINATION: XR chest 2V 12/28/2024 09:10 INDICATION: Generalized hyperhidrosis PROCEDURE: 2 view chest COMPARISON: 09/07/2021 FINDINGS: The lungs are clear. The cardiomediastinal silhouette is within normal limits. There are no pleural effusions. There is no pneumothorax suspected. IMPRESSION: 1: NO ACUTE CARDIOPULMONARY DISEASE. Reviewed, dictated and finalized at location B.
--- OUTSIDE RECORDS SUMMARY | 2024-12-28 08:43 | XMS_ITS | Clinical Summary ---
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 Pulse - - Temperature 36.7 C (98 F) 09/21/2022 4:06 PM H[employer] SCHO[employer] SPECIAL EDUCATION TEACHER Respiratory Rate 18 09/21/2022 4:06 PM H[employer] SCHO[employer] SPECIAL EDUCATION TEACHER Oxygen Saturation - - Inhaled Oxygen Concentration - - Weight 127 kg (281 lb) 09/21/2022 4:06 PM 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
--- OUTSIDE RECORDS SUMMARY | 2024-12-28 08:43 | XMS_ITS | Data Portability ---
Author Organization [facility] Address [address] [facility] [place] [address] Care Team Providers Care Licensed Journeyman Electrician Name Role Phone SADIA KINSEY Primary Care Provider Unavailab le Assessment No assessment recorded. Plan of Treatment Reminders Order Date Submit Date Provider Last Modified By Organization Details Last Modified Time Details Appointments ANY 15 2024 03:00P M NADINE Smith Not available Not available Not available Lab HbA1c (hemoglob in A1c), blood 2024 025 [facility]/Ekg, [address], [place], [address], 12/06/2024 17:29:28 CBC w/ auto diff 2024 025 [facility]/Ekg, [address], [place], [address], 12/06/2024 17:29:28 CMP, serum or plasma 2024 025 [facility]/Ekg, [address], [place], [address], 12/06/2024 17:29:27 lipid panel, serum 2024 025 [facility]/Ekg, [address], [place], [address], 12/06/2024 17:29:27 PSA, serum or plasma 2024 025 [facility]/Ekg, [address], [place], [address], 12/06/2024 17:29:28 TSH + free T4, serum 2024 [facility]/Ekg, [address] [facility] [address], [place], [address], 12/06/2024 17:29:28 rapid strep group A, throat 2024 [email or web address] In-Office Order, Internal Use Only DO Not Attach Compendium DO Not Attach Compendium, Do Not Delete/merge, [id number] 11/11/2024 00:35:02 influenza virus A + B + SARS-CoV- 2 (COVID19) Ag panel, rapid IA, upper respirato ry specimen 2024 [email or web address] In-Office Order, Internal Use Only DO Not Attach Compendium DO Not Attach Compendium, Do Not Delete/merge, [id number] 11/11/2024 00:35:02 Referral None recorded. Procedures None recorded. Surgeries None recorded. Imaging XR, chest, 2 view 2024 [facility] (Imaging), [address] [facility] [address], [place], [address], 12/06/2024 17:28:08 Medication Orders amoxicill in 875 mg-potass ium clavulana te 125 mg tablet 2024 [id number], [address] [facility], [place], [place], [id number], 12/06/2024 16:40:55 Patient TargetsNo targets recorded. Patient Instructions Encounter Date Encounter Id Patient Instructions Last Modified By Organization Details Last Modified Time 11/01/2024 [id number] A healthy lifestyle: care instructions [email or web address] Not available 11/01/2024 17:47:16 Reason for Referral None Reported. Results Created Date Observation Date Name Description Value Unit Range Abnormal Flag Note LastModifiedBy Organization Detail LastModifiedTime 11/01/19 11/01/2024 rapid strep group A, throa t Strep negati ve Not Available In-Office Order Internal Use Only DO Not Attach Compendium DO Not Attach Compendium, Do Not Delete/merge, [id number] 11/01/2024 17:56:05 11/01/19 25 11/01/2024 influ cedric virus A + B + SARS- CoV-2 (COVI D19) Ag panel , rapid IA, upper respi rator y speci men Flu A negati ve Not Available In-Office Order Internal Use Only DO Not Attach Compendium DO Not Attach Compendium, Do Not Delete/merge, [id number] 11/01/2024 17:56:18 11/01/19 25 11/01/2024 influ cedric virus A + B + SARS- CoV-2 (COVI D19) Ag panel , rapid IA, upper respi rator y speci men Flu B negati ve Not Available In-Office Order Internal Use Only DO Not Attach Compendium DO Not Attach Compendium, Do Not Delete/merge, [id number] 11/01/2024 17:56:18 11/01/1911/01/2024 influ cedric virus A [...] Organization Details Recorded Time Benign essential hypertension 7273142 Active 2023 NADINE Smith Attn: Constanza melgar,[address] [facility], [place], [address], [facility] 4 16:04:37 Hyperlipidemia 79263147 Active 2023 NADINE Smith Attn: Constanza melgar,[address] [facility], [place], [address], [facility] 4 16:04:38 Hypothyroidism 14074513 Active 2023 NADINE Smith Attn: Constanza melgar,[address] [place], [address], [place] [facility] 4 16:04:39 Long-term drug therapy Active 2023 NADINE Smith Attn: Constanza melgar,[address] [place], [place], [address] [place] [address] 2, [place] [facility] 4 16:04:39 Blood glucose outside reference range 418160283 Active 2023 NADINE Smith Attn: Constanza melgar,[address] [place], [place], [address] [place] [address], [place] - [facility] 4 16:30:39 Generalized anxiety disorder 85266911 Active 2023 NADINE Smith Attn: Katlynkala melgar,[address] [place], [place], [address] [place] [address], [place] [facility] 4 01:20:42 Body mass index 25-29 - overweight 119388017 Active 2023 NADINE Smith Attn: Constanza melgar,[address] [place], [place], [address] [place] [address], [place] - [facility] 4 01:21:03 Body mass index 30+ - obesity 970486301 Active 2024 NADINE Smith Attn: Katlynkala melgar,[address] [place], [address] [place] [address], [place] [facility] 5 00:35:08 Obesity 939829186 Active 2024 NADINE Smith Attn: Katlynkala melgar,[address] [place], [place], [address] [place] [address], [place] - [facility] 5 00:35:09 Problem Notes None recorded. Medical Equipment None Reported. Allergies Allergen ID Allergen Name Allergen Category Reaction Reaction Severity Criticality Documentation Date Start Date Code Code System Note Provider Name and Address Organization Details Recorded Time 779088 cultivate d mushroom extract food Not available Not available Not available 06/05/2024 16777 17 RxNorm Not Available Not Available Not Available Medications Name Sig Start Date Stop Date Status Note LastModified by Organization Details LastModified Time clonidine HCl 0.1 mg tablet TAKE 1 TABLET BY MOUTH EVERY DAY NEEDED 12/06 completed Not Available Not Available Not Available labetalol 200 mg tablet one daily [...] 1 TABLET BY MOUTH EVERY 12 HOURS 12/06 completed Not Available Not Available Not Available escitalopra m 10 mg tablet Take 1 tablet every day by oral route. active Not Available Not Available No t Available Paxlovid 300 mg (150 mg x 2)-100 mg tablets in a dose pack FOLLOW PACKAGE DIRECTION S 12/06 completed Not Available Not Available Not Available Vitals Date Recorded Body height Respiratory rate Body mass index (BMI) Body weight Oxygen saturation Oxygen saturation in Arterial blood by Pulse oximetry Heart rate Systolic blood pressure Diastolic blood pressure Systolic blood pressure Diastolic blood pressure Provider Name and Address Organization Details Last Updated DateTime 187.96 cm 18 /min 29.7 kg/m2 760969. 84 g 98 % 98 % 60 /min 142 mm[Hg] 90 mm[Hg] 140 mm[Hg] 88 mm[Hg] Shant Martinez MA [facility] 16:53:14 Date Recorded Systolic blood pressure Diastolic blood pressure Provider Name and Address Organization Details Last Updated DateTime 06/05/2024 150 mm[Hg] 90 mm[Hg] NADINE Smith Attn: Accounting,[address] [facility], [place], [address], [facility] 06/05/2024 17:28:53 Date Recorded Body height Body mass index (BMI) Body weight Respiratory rate Oxygen saturation Oxygen saturation in Arterial blood by Pulse oximetry Heart rate Systolic blood pressure Diastolic blood pressure Provider Name and Address Organization Details Last Updated DateTime 187.96 cm 30.9 kg/m2 473455. 76 g 18 /min 97 % 97 % 70 /min 142 mm[Hg] 88 mm[Hg] Shant Martinez MA [facility] 17:23:40 Date Recorded Body height Body mass index (BMI) Body weight Heart rate Oxygen saturation Oxygen saturation in Arterial blood by Pulse oximetry Systolic blood pressure Diastolic blood pressure Provider Name and Address Organization Details Last Updated DateTime 187.96 cm 31.1 kg/m2 206592. 15 g 59 /min 95 % 95 % 160 mm[Hg] 78 mm[Hg] Ana Escobar MA [facility] 16:44:41 Date Recorded Systolic blood pressure Diastolic blood pressure Systolic blood pressure Diastolic blood pressure Provider Name and Address Organization Details Last Updated DateTime 12/06/2024 140 mm[Hg] 80 mm[Hg] 144 mm[Hg] 82 mm[Hg] NADINE Smith Attn: [place], [address] , [facility] 17:18:32 Social History Question Answer Notes LastModified by Organizat ion Details LastModified Time Tobacco Smoking Status Never Smoker Shant Martinez MA null, [facility] 06/05/2024 16:15:00 Do You Have An Advance Directive? Yes Information n ot available 06/05/2024 What Is Your Level Of Alcohol Consumption? None Information not available 06/05/2024 Are You Blind Or Do You Have Difficulty Seeing? No Information n ot available 12/06/2024 What Is Your Level Of Caffeine Consumption? [...] Or Do You Have Serious Difficulty Hearing? No Information not available 12/06/2024 What Type Of Diet Are You Following? 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 No Information not available 06/05/2024 What Was The Date Of Your Most Recent Tobacco Screening? 12/06/2024 Information not available 12/06/2024 What Is Your Relationship Status? Information not [...] LastModified by Organizat ion Details LastModified Time Are you able to care for yourself? Yes Information not available 06/05/2024 What is your exercise level? Occasional walk,hike, bike Information not available 06/05/2024 Mental Status None recorded. Family History Nothing Reported Notes:Pt. states that he franz sn't know to much about family Medical History Condition Response Anxiety Disorder Y Coronary Artery Disease N Muscle, Joint, or Bone Problems N Atrial Fibrillation N High Blood Pressure Y Cancer N Thyroid Problems Y Depression Y COPD N Blood Clots N High Cholesterol Y Immunizations Vaccine Type Date Status Note Provider Cristi paz and Address Organization Details Recorded Time COVID-19, mRNA, LNP-S, PF, 100 mcg/0.5mL dose or 50 mcg/0.25mL dose 11/18/2020 completed ANDREW H[place], [place] - [facility] 11/01/2024 09:03:03 COVID-19, mRNA, LNP-S, PF, 100 mcg/0.5mL dose or 50 mcg/0.25mL dose 12/22/2020 completed ANDREW H[place], [place] [facility] 11/01/2024 09:03:03 COVID-19, mRNA, LNP-S, PF, 100 mcg/0.5mL dose or 50 mcg/0.25mL dose 08/11/2021 completed ANDREW Hui, [place] [facility] 11/01/2024 09:03:04 Past Encounters Encounter ID Performer Location Encounter Start Date Encounter Closed Date Diagnosis/Indication Diagnosis SNOMED-CT Code Diagnosis ICD10 Code Diagnosis Note [id number] NADINE Smith [facility] [place] [address] [place] [address] 06/05/2024 16:06:47 06/11/2024 17:11:27 Benign essential hypertension 9946658 I10 Patient is taking hydralazin e 100 [...] he is not in goal range. Hyperlipidemia 85246310 E78.5 Lipid panel is stable on simvastati n 80 mg daily Hypothyroidism 08103016 E03.9 Thyroid function panels are normal range at Synthroid 175 mcg daily continue dosing Long-term drug therapy 271299411 Z79.899 All labs reviewed Blood gluc ose outside reference range 197549540 R73.09 5.8% A1c. Continue to monitor Adult heal th examination 082042866 Z00.01 Annual wellness exam complete Generalize d anxiety disorder 36507160 F41.1 Patient is stable on Lexapro 10 mg daily for mild anxiety Body mass index 25-29 - overweight 507290398 Z68.29 BMI is 29.7 [id number] NADINE Smith [employer]er [facility] [employer] [address] [place] [address] 11/01/2024 16:53:43 11/04/2024 15:18:08 Body mass index 30+ - obesity 655568059 Z68.30 BMI is 30.9 Obesity 511072555 E66.9 Upper resp iratory infection 41842924 J06.9 Patient is negative for strep negative for influenza a, B and COVID. We will start Augmentin 875 twice daily for 7 days in light of upper respirator y symptoms and swelling and puffiness of the left eye. [id number] NADINE Smith [facility] [address] [place] [address] 12/06/2024 16:23:01 12/09/2024 13:05:20 Body mass index 30+ - obesity 988583374 Z68.31 BMI is 31.1 Benign ess ential hypertension 7651901 I10 Patient is taking hydralazin e 100 mg daily, irbesartan hydrochlor othiazide 300/12.5 mg daily and labetalol 200 mg daily all of which is managed by Nephrology . 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 His home readings are all in range Hyperlipidemia 03780677 E78.5 Lipid panel is stable on simvastati n 80 mg daily. Due for fasting lipid panel Hypothyroidism 95630706 E03.9 Stable on synthroid 175 mcg daily continue dosing. Due for repeat thyroid function testing Blood gluc ose outside reference range 581597442 R73.09 5.8% A1c. Continue to monitor Generalize d anxiety disorder 31442050 F41.1 Patient is stable on Lexapro 10 mg daily for mild anxiety Long-term drug therapy 538535012 Z79.899 CBC and CMP due Screening for malignant neoplasm of prostate 302513189 Z12.5 Annual PSA due Night sweats 42957226 R6 1 Patient reports that the end of the visit he has been having some frequent night sweats. Not every night but he is having them feeling hot in the face in the legs sometimes a little bit in the chest. He is not drenching his shirt but it is something new that he has noted. We are going to send him for a chest x-ray. I have also instructed the patient that if the chest x-ray is clear and he continues to have symptoms we will be sending him for a CT of the chest. He is understand ing of the plan. Health Concerns Section Related Observation LastModified by Organization Detai ls LastModified Time None Recorded Concern Status LastModified by Organization Details LastModified Time None Recorded Advance Directives Directive Y: Payers Encounter Date Sequence Insurance Name Policy Number Policy Coy Covered Member ID Coy Member ID Guarantor Name 06/05/2024 1 [facility] [id number] [employer] [id number] Andrés Newman 11/01/2024 1 [facility] [id number] [employer] [id number] Andrés Paty 12/06/2024 1 [facility] [id number] [employer] [id number] Andérs [place] [employer] Notes Date Note Type Note Provider Name and Address Organization Details Recorded Time 4 text/html HyperlipidemiaReported bypatient.Notes:Patient is stable on simvastatin 80 mg daily and labs are [id number] katie bypatient.Notes:Patient is following with Nephrology and [...] helped considerably. NADINE Smith Attn: Accounting,[address] [facility], [place], [address], [facility] 06/10/2024 01:21:18 5 text/html Upper Respiratory SymptomsReported bypatient.Notes:right upper eyelid swelling and drainage. sinus drainage, mucous, right side of throat sore mildly, NADINE Smith Attn: Accounting,[address], [place], [address], [facility] 11/11/2024 00:35:28 5 text/html HyperlipidemiaReported bypatient.Notes:Patient is stable on simvastatin 80 mg daily and labs are [id number] katie bypatient.Notes:Patient is following with Nephrology and [...] helped considerably. NADINE Smith Attn: Accounting,[address], [place], [address], [facility] 12/09/2024 00:35:11
--- OUTSIDE RECORDS SUMMARY | 2024-12-28 08:44 | XMS_ITS | Data Portability ---
Author Organization [place] [facility], Main Office Address [address] [place] [address] Assessment No assessment recorded. Plan of Treatment Reminders Order Date Submit Date Provider Last Modified By Organization Details Last Modified Time Details Appointments None recorded. Lab PSA, serum or plasma [address] [facility], [address], [place], [address], 4 12:25:09 HbA1c (hemoglobi n A1c), blood [address] Out[facility]kg, [address], [place], [address], 4 12:25:08 CBC w/ auto diff [address] Outpatient Registration Lab[facility]kg, [address], [place], [address], 4 12:25:09 hepatic function panel, serum [address] Outpatient Registration Lab[facility]Ekg, [address], [place], [address], 4 12:25:09 lipid panel, serum [address] Outpatient Registration Lab[facility]Ekg, [address], [place], [address], 4 12:25:09 TSH + free T4, serum 2023 024 [facility] Outpatient Registration Lab/Ekg, [address], [place], [address], 4 10:45:21 T3, free, serum or plasma 2023 024 [facility] Outpatient Registration Lab/Ekg, [address], [place], [address], 4 10:20:09 HbA1c (hemoglobi n A1c), blood [...] Organization Details Recorded Time Benign essential hypertension 4627411 Active 2021 Not Available [facility] 3 01:08:38 Mixed anxiety and depressive disorder 711279981 Active 2021 Not Available [facility] 3 01:08:38 Labile essential hypertension 891405021 Active 2021 Not Available [facility] 3 01:08:38 Hypertensive disorder 02245848 Active 2021 Not Available [facility] 3 01:08:38 Hypothyroidis m 07265549 Active 2021 Not Available [facility] 3 01:08:38 Hyperlipidemi a 49581275 Active 2021 Not Available [facility] 3 01:08:38 Impaired glucose tolerance 6411131 Active 2022 Not Available [facility] 3 01:08:38 Problem Notes None recorded. Procedures Surgical History Date Name Laterality Status Provider Name and Address Organization Details Recorded Time Orthopedic Procedure completed Not Available [facility] 12/08/2022 01:07:16 Imaging Results None recorded. Procedure Notes None recorded. Medical Equipment None Reported. Allergies Allergen ID Allergen Name Allergen Category Reaction Reaction Severity Criticality Documentation Date Start Date Code Code System Note Provider Name and Address Organization Details Recorded Time 66392 cultivate d mushroom extract food Not available Not available Not available 12/08/2022 10533 17 RxNorm Not Available [facility] 3 01:09:37 Medications Name Sig Start Date [...] % 98 % 68 /min 97.8 [degF] 501339. 23 g 140 mm[Hg] 90 mm[Hg] Not Available [facility] 3 01:08:06 Date Recorded Body height Oxygen saturation Oxygen saturation in Arterial blood by Pulse oximetry Heart rate Respiratory rate Body temperature Systolic blood pressure Diastolic blood pressure Provider Name and Address Organization Details Last Updated DateTime 2 185.42 cm 98 % 98 % 49 /min 16 /min 97.6 [degF] 160 mm[Hg] 100 mm[Hg] Not Available [facility] 3 01:08:05 Date Recorded Body height Oxygen saturation Oxygen saturation in Arterial blood by Pulse oximetry Heart rate Body temperature Systolic blood pressure Diastolic blood pressure Provider Name and Address Organization Details Last Updated DateTime 2 185.42 cm 98 % 98 % 68 /min 97.1 [degF] 140 mm[Hg] 80 mm[Hg] Not Available [facility] 3 01:08:05 Date Recorded Body height Body mass index (BMI) Body weight Respiratory rate Oxygen saturation Oxygen saturation in Arterial blood by Pulse oximetry Heart rate Systolic blood pressure Diastolic blood pressure Provider Name and Address Organization Details Last Updated DateTime 3 185.42 cm 35.9 kg/m2 257674. 12 g 16 /min 97 % 97 % 62 /min 140 mm[Hg] 82 mm[Hg] LISSETTE Palumbo [employer] [facility] 3 09:27:24 Date Recorded Systolic blood pressure Diastolic blood pressure Provider Name and Address Organization Details Last Updated DateTime 04/18/2023 130 mm[Hg] 80 mm[Hg] NADINE Smith [address], [place], [address], [place] [employer] 04/18/2023 10:01:07 Date Recorded Body height Provider Name an d Address Organization Details Last Updated DateTime 10/17/2023 185.42 cm LISSETTE Palumbo [employer] [facility] 10/17/2023 16:28:38 Date Recorded Body mass index (BMI) Body weight Respiratory rate Oxygen saturation Oxygen saturation in Arterial blood by Pulse oximetry Systolic blood pressure Diastolic blood pressure Provider Name and Address Organization Details Last Updated DateTime 4 33.2 kg/m2 712563. 28 g 16 /min 98 % 98 % 130 mm[Hg] 70 mm[Hg] NADINE Smith [address], [place], [address], [employer] [facility] 4 17:12:43 Social History Question Answer Notes LastModified by Organizat ion Details LastModified Time Tobacco Smoking Status Never Smoker Not Available [facility] 12/08/2022 01:07:02 What Is Your Level Of Alcohol Consumption? Moderate [id number] Information not available 12/08/2022 What Is Your Level Of Caffeine Consumption? Heavy MIGRATION.[id number] 2163 Information not available 12/08/2022 In The 14 Days Before Symptom Onset, Have You Had Close Contact With A Laboratory-confirm ed COVID-19 While That Case Was Ill? No MIGRATION.[id number] 2229 Information not available 12/08/2022 In The 14 Days Before Symptom Onset, Have You Had Close Contact With A Person Who Is Under Investigation For COVID-19 While That Person Was Ill? No MIGRATION.411129 1168 Information not available 12/08/2022 Are You Currently Employed? Yes [email or web address] Information not available 04/17/2023 What Type Of Diet Are You Following? 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 No MIGRATION.[id number] 3800 Information not available 12/08/2022 Do You Use Insect Repellent Routinely? No MIGRATION.[id number] 8541 Information not available 12/08/2022 What Is Your Relationship Status? MIGRATION.[id number] 4294 Information not available 12/08/2022 Do You Use Your Seat Belt Or Car Seat Routinely? Yes MIGRATION.004484 6500 Information not available 12/08/2022 Do You Have Smoke And Carbon Monoxide Detectors In Your Home? Yes MIGRATION.412375 1738 Information not available 12/08/2022 Do You Use Any Illicit Or Recreational Drugs? No [email or web address] Information not available 04/17/2023 Do You Use Sunscreen Routinely? Yes MIGRATION.018355 4584 Information not available 12/08/2022 Have You Recently Traveled Abroad? No MIGRATION.830704 2529 Information not available 12/08/2022 Do You Have Any Dietary Restrictions? No MIGRATION.306001 7360 Information not available 12/08/2022 Do You Or Have You Ever Used Any Other Forms Of Tobacco Or Nicotine? No MIGRATION.914194 6432 Information not available 12/08/2022 Sex: Unknown Functional Status Question Answer Note LastModified by Organizat ion Details LastModified Time What is your exercise level? Occasional [id number] 26 Information not available 12/08/2022 Mental Status None recorded. Family History Relationship Description Onset Age of this Age Resolved Age Notes LastModified by Organization Details LastModified Time Mother Hypothyroidi sm [id number] Not available 12/08/2022 01:07:18 Father Heart disease [id number] Not available 12/08/2022 01:07:18 Medical History Condition Response ARTHRITIS Y USE OF BLOOD THINNERS Y ANXIETY DISORDER Y HYPOTHYROIDISM Y DEPRESSION (INCLUDING POST ) Y BACK / NECK PROBLEMS Y HYPERTENSION Y HIGH CHOLESTEROL / HYPERLIPIDEMIA Y Past Encounters Encounter ID Performer Location Encounter Start Date Encounter Closed Date Diagnosis/Indication Diagnosis SNOMED-CT Code Diagnosis ICD10 Code Diagnosis Note [id number] [facility] [place] [address] [place] [address] 04/13/2022 00:00:00 04/13/2022 10:25:36 [id number] [facility] [place] [address] [place] [address] 07/11/2022 00:00:00 08/08/2022 18:03:27 [id number] [facility] [place] [address] [place] [address] 08/24/2022 00:00:00 09/07/2022 01:05:54 [id number] [facility] [place] [address] [place] [address] 10/17/2022 00:00:00 11/07/2022 00:04:49 [id number] NADINE Smith [facility] [place] [address] [place] [address] 04/18/2023 09:21:55 04/18/2023 10:02:10 Adult health examination 762957686 Z00.01 well exam completed Hypothyroidism 45076128 E03.9 on supplement and due for TFT panel Impaired g lucose tolerance 4002459 R73.03 following prediabete s and due for a1c Hyperlipidemia 64570367 E78.5 on statin therapy and due for fasting lipids Long-term drug therapy 631805602 Z79.899 due for annual CBC and LFT Body mass index 30+ - obesity 211448036 Z68.35 Benign ess ential hypertension 9352568 I10 stable at this time, follows with nephrology for BP management and renal fcn. [id number] NADINE Smith [facility] [place] [address] [place] [address] 10/17/2023 16:26:56 10/17/2023 17:10:53 Benign essential hypertension 4264145 I10 stable at this time, follows with nephrology for BP management and renal fcn. Hypothyroidism 19961514 E03.9 on supplement and due for TFT panel Impaired g lucose tolerance 3758890 R73.03 following prediabete s and due for a1c Hyperlipidemia 00648738 E78.5 on statin therapy and due for fasting lipids Long-term drug therapy 624390224 Z79.899 due for annual CBC and LFT Body mass index 30+ - obesity 154951190 Z68.35 30 pounds of weight loss in just over a month on weight loss system from [facility]. hcg type drops and controlled diet. Screening for malignant neoplasm of prostate 410113220 Z12.5 annual PSA is due Health Concerns Section Related Observation LastModified by Organization Detai ls LastModified Time None Recorded Concern Status LastModified by Organization Details LastModified Time None Recorded Advance Directives Directive None Recorded Payers Encounter Date Sequence Insurance Name Policy Number Policy Coy Covered Member ID Coy Member ID Guarantor Name 04/18/2023 1 [facility] [id number] Andrés Newman [id number] Andrés Newman 10/17/2023 1 [facility] [id number] Andrés Newman [id number] Andrés Newman Notes Date Note Type Note Provider Name and Address Organization Details Recorded Time 022 text/h tml HypertensionReported bypatient.Quality:weakness Severity:intense Onset/Timing:worse Context:exertion;at rest;wakes up from sleep Aggravating Factors:worse with activity;caffeine Self Care:not under emotional stress; checks blood pressure at home (range 180/100) Associated Symptoms:no shortness of breath; no palpitations;fatigue; chest tightnessNotes:complains of daily severe headaches, fatiguealso concerned about thyroid levels Not Available [facility] 08/08/2022 18:03:27 022 text/h tml HypertensionReported bypatient.Quality:weakness Severity:intense Onset/Timing:worse Context:exertion;at rest;wakes up from sleep Alleviating Factors:medication Aggravating Factors:worse with activity;caffeine Self Care:not under emotional stress; checks blood pressure at home (range 140/80s 180/100) Associated Symptoms:no shortness of breath; no palpitations;fatigue; chest tightnessNotes:pt has seen renal specialist for blood pressure med changes. Not Available [facility] 09/07/2022 01:05:54 023 text/h tml Anxiety/DepressionReported bypatient.Quality:symptoms [...] skin changes; no hair changes Not Available [facility] 11/07/2022 00:04:49 023 text/h tml Anxiety/DepressionReported bypatient.Quality:doesnt [...] no hair changes Wellness NADINE Smith [address] [facility], [facility] [address], [place], [address], [place] [facility] 05/08/2023 18:55:30 024 text/h tml Anxiety/DepressionReported bypatient.Quality:doesnt [...] changes; no hair changes NADINE Smith [address] [facility] [address], [place], [address], [place] [facility] 10/18/2023 14:49:34
[2024-12-28 09:16] LABS: Basophils Absolute Auto 0.1 K/mm3 (0.0-0.1); Basophils Percent Auto 1.5 % (0.2-1.2); Eosinophils Absolute Auto 0.2 K/mm3 (0-0.3); Hematocrit 38.4 % (42.0-52.0); Hemoglobin 12.5 g/dL (14.0-18.0); Immature Granulocyte Absolute 0.01 K/mm3 (0.00-0.031); Immature Granulocyte Percent A 0.2 % (0-0.5); Lymphocytes Absolute Auto 1.77 K/mm3 (0.9-3.2); Lymphocytes Percent Auto 29.4 % (18.3-44.2); Mean Corpuscular HGB Conc 32.6 g/dl (32-36); Mean Corpuscular Hemoglobin 28.2 pg (26-34); Mean Corpuscular Volume 86.5 fl (80-100); Mean Platelet Volume 9.3 fl (7.4-10.4); Monocytes Absolute Auto 0.5 K/mm3 (0.1-0.6); Monocytes Percent Auto 7.8 % (2.6-8.5); Neutrophils Absolute Auto 3.5 K/mm3 (1.3-6.7); Neutrophils Percent Auto 58.1 % (45.5-73.1); Platelet Count Result 232 k/mm3 (150-375); Red Blood Count 4.44 M/mm3 (4.6-6.20); Red Cell Distribution Width 13.8 % (11.5-14.5)
[2024-12-28 09:56] LABS: Hemoglobin A1C 5.4 % (<5.7)
[2024-12-28 10:09] LABS: Alanine Aminotransferase 26 U/L (6-50); Albumin Level 4.3 g/dL (3.5-5.1); Alkaline Phosphatase 48 U/L (38-126); Anion Gap 8 mmol/L (4-12); Aspartate Amino Transferase 28 U/L (17-59); Bilirubin,Total 1.1 mg/dL (0.2-1.3); Blood Urea Nitrogen 14 mg/dL (9-20); Calcium 9.2 mg/dL (8.4-10.2); Carbon Dioxide 28 mmol/L (22-30); Chloride 104 mmol/L (98-107); Estimated Glomerular Filt Rate > 60; Glucose 97 mg/dL (65-110); Sodium 140 mmol/L (137-145)
[2024-12-28 10:25] LABS: Free T4 Free Thyroxine 1.36 ng/dL (0.78-2.19)
[2024-12-28 10:51] LABS: Prostate Specific Antigen 0.9 ng/mL (< OR = 4.0)
== END 2024-12-28 08:38 | disposition home or self-care (01) ==
LOC: ANHLAB 08:42
PROVIDERS: PCP Physician Assistant; Visit Provider Physician Assistant
DX: R61 Generalized hyperhidrosis (principal); E03.9 Hypothyroidism, unspecified; E78.5 Hyperlipidemia, unspecified; R73.09 Other abnormal glucose; Z12.5 Encounter for screening for malignant neoplasm of prostate; Z79.899 Other long term (current) drug therapy
CPT/HCPCS: 36415; 71046; 80053; 83036; 84153; 84439; 84443; 85025; G0103

== ENCOUNTER 2025-06-21 07:58 | Outpatient (CLI) | payer OTHER, SELFPAY ==
--- OUTSIDE RECORDS SUMMARY | 2025-06-21 08:01 | XMS_ITS | Patient Health Record ---
Author Organization [facility] Address [address] [address] Care Team Providers Care Armhole Presser Name Role Phone Marcy Lau Unavailable [phone] Reason For Referral No Information Plan Of Treatment No Information
--- OUTSIDE RECORDS SUMMARY | 2025-06-21 08:01 | XMS_ITS | Clinical Summary ---
Author Organization [facility] Address [address] [place] [address] Phone Care Team Providers Care Form Block Maker Name Role Phone Esme Rios Primary Care Provider [phone] Allergies Active Allergy Reactions Criticality Noted Date Comments Mushroom Extract Complex (Obsolete) Hives 10/13/2021 Medications busPIRone (BUSPAR) 10 MG tablet 09/28/2021 Active DULoxetine (CYMBALTA) [address] capsule Take 30 mg by mouth 1 (one) time each day 08/03/2021 Active escitalopram (LEXAPRO) 10 MG tablet 08/14/2021 Active fluticasone (FLONASE) 50 MCG/ACT nasal spray 09/28/2021 Active irbesartan-hydr oCHLOROthiazide (AVALIDE) 300-12.5 MG per tablet 08/23/2021 Active levothyroxine (SYNTHROID) 200 MCG tablet Take 200 mcg by mouth 1 (one) time each day 09/06/2021 Active simvastatin (ZOCOR) 80 MG tablet 08/24/2021 Active hydroCHLOROthia zide (HYDRODIURIL) 12.5 MG tablet Take 1 tablet (12.5 mg total) by mouth 1 (one) time each day 30 tablet 2 11/17/2021 Active benzonatate (TESSALON) 100 MG capsule TAKE 1 CAPSULE BY MOUTH EVERY 8 HOURS NEEDED 06/17/2022 Active Synthroid 175 MCG tablet 06/30/2022 Active albuterol HFA (ProAir HFA) 108 (90 Base) MCG/ACT inhaler ProAir HFA 90 mcg/actuatio n aerosol inhaler INL 2 PFS PO Q [...] disorder 10/13/2021 Abnormal renal function 10/13/2021 Immunizations Immunization Administration Dates Next Due Sars-cov-2, Unspecified 12/29/2020 [...] Recorded Sex Assigned at Not on file Legal Sex Male 1:54 PM [facility] Gender Identity Not on file Sexual Orientation Not on file Last Filed Vital Signs Vital Sign Reading Time Taken Comments Blood Pressure 138/86 09/21/2022 4:06 PM [employer] Pulse - - Temperature 36.7 C (98 F) 09/21/2022 4:06 PM [facility] Respiratory Rate 18 09/21/2022 4:06 PM [employer]ER Oxygen Saturation - - Inhaled Oxygen Concentration - - Weight 127 kg (281 lb) 09/21/2022 4:06 PM COUNTER TENDER Height 185.4 cm (6' 1) 09/21/2022 4:06 PM COUNTER TENDER Body Mass Index 37.07 09/21/2022 4:06 PM COUNTER TENDER Plan of Treatment Health Maintenance Due Date Last Done Comments Influenza Vaccine (#1) 2025 Insurance [facility] Care Teams Form Block Maker Relationship Specialty Start Date End Date Esme Rios PA [address] [place] [id number] PCP - General Family Medicine 09/21/22
[2025-06-21 10:19] LABS: Hematocrit 39.3 % (42.0-52.0); Hemoglobin 13.1 g/dL (14.0-18.0); Immature Granulocyte Percent A 0.2 % (0-0.5); Lymphocytes Absolute Auto 2.05 K/mm3 (0.9-3.2); Mean Corpuscular HGB Conc 33.3 g/dl (32-36); Mean Corpuscular Hemoglobin 29.0 pg (26-34); Mean Corpuscular Volume 87.1 fl (80-100); Nucleated Red Blood Cells Absolute Auto 0.000 K/mm3 (0.0-0.012); Nucleated Red Blood Cells Perc 0.0 % (0.0-0.2); Platelet Count Result 253 k/mm3 (150-375); Red Blood Count 4.51 M/mm3 (4.6-6.20); White Blood Count 8.1 K/mm3 (4.5-10.0)
[2025-06-21 10:29] LABS: Hemoglobin A1C 5.7 % (<5.7)
[2025-06-21 10:40] LABS: Alanine Aminotransferase 35 U/L (6-50); Albumin Level 4.2 g/dL (3.5-5.1); Alkaline Phosphatase 51 U/L (38-126); Anion Gap 7 mmol/L (4-12); Aspartate Amino Transferase 39 U/L (17-59); Bilirubin,Total 0.8 mg/dL (0.2-1.3); Blood Urea Nitrogen 18 mg/dL (9-20); Calcium 8.8 mg/dL (8.4-10.2); Carbon Dioxide 28 mmol/L (22-30); Chloride 104 mmol/L (98-107); Cholesterol 150 mg/dL (0-200); Estimated Glomerular Filt Rate 55; Glucose 94 mg/dL (65-110); HDL Direct 46 mg/dL; Potassium 3.8 mmol/L (3.4-5.0); Sodium 139 mmol/L (137-145); Total Protein 7.6 g/dL (6.3-8.2); Triglycerides 83 mg/dL (<150)
[2025-06-21 10:56] LABS: Free T4 Free Thyroxine 1.17 ng/dL (0.78-2.19)
[2025-06-21 11:15] LABS: Thyroid Stimulating Hormone 6.920 uIU/mL (0.465-4.680)
== END 2025-06-21 07:59 | disposition home or self-care (01) ==
PROVIDERS: PCP Physician Assistant; Visit Provider Physician Assistant
DX: E78.5 Hyperlipidemia, unspecified (principal); E03.9 Hypothyroidism, unspecified; R73.09 Other abnormal glucose; Z79.899 Other long term (current) drug therapy
CPT/HCPCS: 36415; 80053; 80061; 83036; 84439; 84443; 85025